=== PATIENT | female | born 1955 | race Caucasian/White ===

== ENCOUNTER 2017-03-05 19:49 | Emergency (ER) | payer MEDICAID ==
[2017-03-05 20:13] LABS: URINE APPEARANCE CLEAR; URINE BILIRUBIN NEGATIVE (NEGATIVE); URINE BLOOD MODERATE (NEGATIVE); URINE COLOR YELLOW; URINE GLUCOSE (UA) NEGATIVE (NEGATIVE); URINE KETONE NEGATIVE (NEGATIVE); URINE LEUKOCYTE ESTERASE MODERATE (NEGATIVE); URINE NITRITE NEGATIVE (NEGATIVE)
[2017-03-05 20:55] LABS: URINE BACTERIA 2+
[2017-03-05] MEDS ORDERED: TMP/SMZ 160MG/800MG TAB PO ONE (21:18)
[2017-03-05] MEDS ORDERED: PHENAZOPYRIDINE HCL 95 MG TABLET PO ONE (21:19)
--- NOTE | 2017-03-05 21:21 | Emergency Department Record ---
History of Present Illness - General Chief complaint: Female Urogenital Problem Stated complaint: UTI Time Seen by Provider: 03/05/17 21:15 Source: Patient Mode of Arrival: Ambulatory - History of Present Illness Onset/Timin -: Days(s) Patient : No Associated Symptoms: Dysuria - Related Data Home Medications Medication Instructions Recorded Confirmed Last Taken Amlodipine Besylate [Norvasc] 5 mg PO DAILY 04/09/15 03/05/17 08/24/15 Atorvastatin Calcium 10 mg PO DAILY 04/09/15 03/05/17 08/24/15 Citalopram Hydrobromide [Celexa] 20 mg PO DAILY 04/09/15 03/05/17 08/24/15 Glimepiride [Amaryl] 1 mg PO DAILY 04/09/15 03/05/17 08/24/15 Lisinopril 10 mg PO DAILY 04/09/15 03/05/17 08/24/15 Estrogens, Conjugated [Premarin] 1.25 mg PO DAILY 02/14/16 03/05/17 Unknown Tolterodine Tartrate [Detrol LA] 4 mg PO DAILY 02/14/16 03/05/17 Unknown Previous Rx's Medication Instructions Recorded Phenazopyridine HCl [Pyridium] 200 mg PO TID #5 tab 03/05/17 Sulfamethoxazole/Trimethoprim 1 each PO BID #19 tablet 03/05/17 [Bactrim Ds Tablet] Allergies Allergy/AdvReac Type Severity Reaction Status Date / Time fluconazole [From Diflucan] Allergy HIVES Unverified 06/02/16 18:37 Travel Screening - Travel/Exposure Within Last 30 Days Have you traveled within the last 30 days?: No Review of Systems Reviewed: No additional complaints except as noted below Constitutional: Reports: As per HPI. Denies: Chills, Fever, Malaise, Night sweats, Weakness, Weight change Eyes: Reports: As per HPI. Denies: Eye discharge, Eye pain, Photophobia, Vision change ENT: Reports: As per HPI. Denies: Congestion, Dental pain, Ear pain, Epistaxis , Hearing loss, Throat pain Respiratory: Reports: As per HPI. Denies: Cough, Dyspnea, Hemoptysis, Stridor, Wheezes Cardiovascular: Reports: As per HPI. Denies: Arrhythmia, Chest pain, Dyspnea on exertion, Edema, Murmurs, Orthopnea, Palpitations, Paroxysmal nocturnal dyspnea, Rheumatic Fever, Syncope Endocrine: Reports: As per HPI. Denies: Fatigue, Heat or cold intolerance, Polydipsia, Polyuria Gastrointestinal: Reports: As per HPI. Denies: Abdominal pain, Constipation, Diarrhea, Hematemesis, Hematochezia, Melena, Nausea, Vomiting Genitourinary: Reports: As per HPI. Denies: Abnormal menses, Discharge, Dyspareunia, Dysuria, Frequency, Hematuria, Incontinence, Retention, Urgency Musculoskeletal: Reports: As per HPI. Denies: Arthralgia, Back pain, Gout, Joint swelling, Myalgia, Neck pain Skin: Reports: As per HPI. Denies: Bruising, Change in color, Change in hair/ nails, Lesions, Pruritus, Rash Neurological: Reports: As per HPI. Denies: Abnormal gait, Confusion, Headache, Numbness, Paresthesias, Seizure, Tingling, Tremors, Vertigo, Weakness Psychiatric: Reports: As per HPI. Denies: Anxiety, Auditory hallucinations, Depression, Homicidal thoughts, Suicidal thoughts, Visual hallucinations Hematological/Lymphatic: Reports: As per HPI. Denies: Anemia, Blood Clots, Easy bleeding, Easy bruising, Swollen glands Past Medical History - SOCIAL HISTORY Smoking Status: Former smoker Alcohol Use: None Drug Use: None - RESPIRATORY Hx Respiratory Disorders: No - CARDIOVASCULAR Hx Cardio Disorders: Yes Hx Deep Vein Thrombosis: Yes Hx Hypertension: Yes - NEURO Hx Neuro Disorders: No - GI Hx GI Disorders: No - Hx Genitourinary Disorders: Yes Hx Bladder Problem: Yes (bladder frequency) Hx UTI: Yes - ENDOCRINE Hx Endocrine Disorders: Yes Hx Diabetes: Yes Comment:: checks blood sugars daily - MUSCULOSKELETAL Hx Musculoskeletal Disorders: No Comment:: lump left upper leg - PSYCH Hx Psych Problems: Yes Hx Depression: Yes Comment:: learning disabilities - HEMATOLOGY/ONCOLOGY Hx Hematology/Oncology Disorders: Yes Hx Blood Transfusions: Yes Hx Blood Transfusion Reaction: No Family Medical History Any Significant Family History?: Yes Hx Cancer: Brother/Sister Hx Depression: Brother/Sister Hx Diabetes: Brother/Sister, Grandparents Hx HTN: Brother/Sister Hx Seizures: Children Physical Exam - General General Appearance: Alert, Oriented x3, Cooperative, No acute distress - Head Head exam: Normal inspection - Eye Eye exam: Normal appearance, PERRL Pupils: Normal accommodation - ENT ENT exam: Normal exam, Mucous membranes moist, Normal external ear exam, Normal orophraynx, TM's normal bilaterally Ear exam: Normal external inspection. negative: External canal tenderness Nasal Exam: Normal inspection. negative: Discharge, Sinus tenderness Mouth exam: Normal external inspection, Tongue normal Teeth exam: Normal inspection. negative: Dental caries Throat exam: Normal inspection. negative: Tonsillar erythema, Tonsillar exudate - Neck Neck exam: Normal inspection, Full ROM. negative: Tenderness - Respiratory Respiratory exam: Normal lung sounds bilaterally. negative: Respiratory distress - Cardiovascular Cardiovascular Exam: Regular rate, Normal rhythm, Normal heart sounds - GI/Abdominal GI/Abdominal exam: Soft, Normal bowel sounds. negative: Tenderness - Rectal Rectal exam: Deferred - exam: Deferred - Extremities Extremities exam: Normal inspection, Full ROM, Normal capillary refill. negative: Tenderness - Back Back exam: Reports: Normal inspection, Full ROM. Denies: Muscle spasm, Rash noted, Tenderness - Neurological Neurological exam: Alert, Normal gait, Oriented X3, Reflexes normal - Psychiatric Psychiatric exam: Normal affect, Normal mood - Skin Skin exam: Dry, Intact, Normal color, Warm Course Vital Signs 03/05/17 20:27 Temperature 97.9 F Pulse Rate [ 101 H Pulse Ox Probe] Respiratory 25 H Rate Blood Pressure 139/77 [Left Arm] Pulse Ox 93 L Medical Decision Making - Management Options MDM Management: No Additional Work-up Planned - Data Complexity MDM Data: Labs Ordered and/or Reviewed (UA positive for UTI) - Lab Data Lab Results 03/05/17 Range/Units 20:05 Urine Color Yellow Urine Appearance Clear Urine pH 5.5 (5.0-8.0) Ur Specific Thurmond >= 1.030 (1.002-1.030) Urine Protein 30 mg/dl H (NEGATIVE) Urine Glucose (UA) Negative (NEGATIVE) Urine Ketones Negative (NEGATIVE) Urine Blood Moderate (NEGATIVE) Urine Nitrite Negative (NEGATIVE) Urine Bilirubin Negative (NEGATIVE) Urine Urobilinogen 1.0 (0.20 - 1.00) E.U./dL Ur Leukocyte Esterase Moderate H (NEGATIVE) Urine RBC 3 - 6 (NONE SEEN) Urine WBC Too numerous to cnt (0-2/hpf) Ur Epithelial Cells 7 - 10 (FEW) Urine Bacteria 2+ Disposition Disposition: Discharge Clinical Impression: UTI (urinary tract infection) Disposition: Home, Self-Care Condition: (1) Good Instructions: Urinary Tract Infection in Women (ED) Additional Instructions: Take antibiotics until gone Take pyridium for the first 2 days--it will turn your urine orange. Follow up with PCP for recheck of urine when done with antibiotics. Prescriptions: Phenazopyridine HCl [Pyridium] 200 mg PO TID #5 tab Sulfamethoxazole/Trimethoprim [Bactrim Ds Tablet] 1 each PO BID #19 tablet Forms: Patient Portal Access Quality - Quality Measures Quality Measures: N/A - Blood Pressure Screening Blood Pressure Classification: Pre-Hypertensive BP Reading Systolic Measurement: 139 Diastolic Measurement: 77 Screening for High Blood Pressure: < Normal BP, F/U Not Required > [G8783] Normal BP Follow-up Interventions: No follow-up required
== END 2017-03-05 22:37 | disposition home or self-care (01) ==
LOC: ER 19:49
DX: N39.0 Urinary tract infection, site not specified (principal); R31.29 Other microscopic hematuria
CPT/HCPCS: 81001; J3490; 99282

== ENCOUNTER 2017-08-29 21:32 | Emergency (ER) | payer MEDICAID ==
[2017-08-29 21:53] LABS: URINE APPEARANCE CLEAR; URINE BILIRUBIN NEGATIVE (NEGATIVE); URINE BLOOD NEGATIVE (NEGATIVE); URINE COLOR YELLOW; URINE GLUCOSE (UA) NEGATIVE (NEGATIVE); URINE KETONE TRACE (NEGATIVE); URINE LEUKOCYTE ESTERASE NEGATIVE (NEGATIVE); URINE NITRITE NEGATIVE (NEGATIVE); URINE PROTEIN NEGATIVE (NEGATIVE); URINE UROBILINOGEN 0.2 E.U./dL (0.20 - 1.00)
--- NOTE | 2017-08-29 21:56 | Emergency Department Record ---
History of Present Illness - General Chief Complaint: Back Pain/Injury Stated Complaint: LOWER BACK PAIN Time Seen by Provider: 08/29/17 21:52 Source: Patient Mode of Arrival: Ambulatory Limitations: No limitations - History of Present Illness Initial Comments: 61 yo female presents to ED for evaluation of low back pain and urinary symptoms for the past 3-4 days. Patient reports previous symptoms related to urinary tract infections, denies fevers, chills, nausea, or vomiting symptoms. Patient denies abdominal pain symptoms, and denies history of kidney stones. Patient denies recent strain or back injury as well. Patient reports taking Ibuprofen that has not significantly improved her pain symptoms. MD Complaint: Back pain Onset/Timin -: Days(s) Similar Symptoms Previously: Yes Radiation: None Severity: Moderate Quality: Aching Consistency: Constant Improves With: None Worsens With: None Context: Other (possible UTI) Associated Symptoms: Denies other symptoms - Related Data Allergies Allergy/AdvReac Type Severity Reaction Status Date / Time fluconazole [From Diflucan] Allergy HIVES Unverified 06/16/17 16:05 Travel Screening - Travel/Exposure Within Last 30 Days Have you traveled within the last 30 days?: No Review of Systems Constitutional: Denies: Chills, Fever, Malaise, Night sweats Eyes: Denies: Eye discharge, Eye pain ENT: Denies: Congestion, Ear pain, Epistaxis Respiratory: Denies: Cough, Dyspnea Cardiovascular: Denies: Chest pain, Dyspnea on exertion Endocrine: Denies: Fatigue, Heat or cold intolerance Gastrointestinal: Denies: Abdominal pain, Constipation, Nausea, Vomiting Genitourinary: Reports: Dysuria, Frequency. Denies: Hematuria, Incontinence Musculoskeletal: Reports: Back pain. Denies: Arthralgia Skin: Denies: Bruising, Change in color Neurological: Denies: Abnormal gait, Confusion, Seizure Psychiatric: Denies: Anxiety Hematological/Lymphatic: Denies: Anemia, Blood Clots Past Medical History - SOCIAL HISTORY Smoking Status: Former smoker - RESPIRATORY Hx Respiratory Disorders: No - CARDIOVASCULAR Hx Cardio Disorders: Yes Hx Deep Vein Thrombosis: Yes Hx Hypertension: Yes - NEURO Hx Neuro Disorders: No - GI Hx GI Disorders: No - Hx Genitourinary Disorders: Yes Hx Bladder Problem: Yes (bladder frequency) Hx UTI: Yes - ENDOCRINE Hx Endocrine Disorders: Yes Hx Diabetes: Yes Comment:: checks blood sugars daily - MUSCULOSKELETAL Hx Musculoskeletal Disorders: No Comment:: lump left upper leg - PSYCH Hx Psych Problems: Yes Hx Depression: Yes Comment:: learning disabilities - HEMATOLOGY/ONCOLOGY Hx Hematology/Oncology Disorders: Yes Hx Blood Transfusions: Yes Hx Blood Transfusion Reaction: No Family Medical History Any Significant Family History?: Yes Hx Cancer: Brother/Sister Hx Depression: Brother/Sister Hx Diabetes: Brother/Sister, Grandparents Hx HTN: Brother/Sister Hx Seizures: Children Physical Exam - General General Appearance: Alert, Oriented x3, Cooperative, Mild distress, Other ( ambulates from the restroom with steady gait, smiling, well appearing on examination.) Limitations: No limitations - Head Head exam: Atraumatic, Normocephalic, Normal inspection Head exam detail: negative: Abrasion, Contusion, Rodriguez's sign, General tenderness, Hematoma, Laceration - Eye Eye exam: Normal appearance. negative: Conjunctival injection, Periorbital swelling, Periorbital tenderness, Scleral icterus - ENT Ear exam: negative: Auricular hematoma, Auricular trauma Nasal Exam: negative: Active bleeding, Discharge, Dried blood, Foreign body Mouth exam: negative: Drooling, Laceration, Tongue elevation - Neck Neck exam: Normal inspection. negative: Meningismus, Tenderness - Respiratory Respiratory exam: Normal lung sounds bilaterally. negative: Rales, Respiratory distress, Rhonchi, Stridor - Cardiovascular Cardiovascular Exam: Regular rate, Normal rhythm, Normal heart sounds - GI/Abdominal GI/Abdominal exam: Soft. negative: Rebound, Rigid, Tenderness - Rectal Rectal exam: Deferred - exam: Deferred - Extremities Extremities exam: Normal inspection. negative: Calf tenderness, Pedal edema, Tenderness - Back Back exam: Denies: CVA tenderness (R), CVA tenderness (L) - Neurological Neurological exam: Alert, Normal gait, Oriented X3 - Psychiatric Psychiatric exam: Normal affect, Normal mood - Skin Skin exam: Normal color. negative: Abrasion Type of lesion: negative: abrasion Course Vital Signs 08/29/17 21:40 Temperature 98.1 F Pulse Rate [ 95 H Pulse Ox Probe] Respiratory 20 Rate Blood Pressure 127/84 [Left Arm] Pulse Ox 95 - Reevaluation(s) Reevaluation #1: 08/29/17 21:55 Patient reports similar symptoms previously related to UTI, denies injury or history of kidney stones. Will obtain UA and re-evaluate. Reevaluation #2: 08/29/17 21:58 UA reviewed and appears negative for blood or infection. Symptoms appear c/w lower back strain, patient has only taken (1) ibuprofen 200 mg tablet for her pain symptoms. Patient was encouraged to take 600 mg every 6 hours as needed for her back pain symptoms. Imaging does not appears indicated based on the history and physical examination of the patient. Disposition Disposition: Discharge Clinical Impression: Low back strain Qualifiers: Encounter type: initial encounter Qualified Code(s): S39.012A - Strain of muscle, fascia and tendon of lower back, initial encounter Disposition: Home, Self-Care Condition: (2) Stable Instructions: Low Back Strain (ED) Additional Instructions: Return to ED if your symptoms worsen or if you have any concerns. Ibuprofen 600 mg every 6 hours as needed for your pain symptoms. Follow-up with your family doctor in 3-5 days as directed. Forms: Patient Portal Access Time of Disposition: 22:01 Quality - Quality Measures Quality Measures: N/A - Blood Pressure Screening Does Patient Have Any of the Following: No Blood Pressure Classification: Normal BP Reading Systolic Measurement: 109 Diastolic Measurement: 64 Screening for High Blood Pressure: < Normal BP, F/U Not Required > [G8783]
== END 2017-08-29 22:35 | disposition home or self-care (01) ==
LOC: ER 21:32
DX: S39.012A Strain of muscle, fascia and tendon of lower back, initial encounter (principal); X58.XXXA Exposure to other specified factors, initial encounter
CPT/HCPCS: 81003; 99282

== ENCOUNTER 2019-02-17 12:54 | Emergency (ER) | payer MEDICAID ==
[2019-02-17] MEDS ORDERED: 0.9 % SODIUM CHLORIDE 1,000 ML BAG IV ONE (13:15)
[2019-02-17] MEDS ORDERED: ONDANSETRON HCL IV 4 MG/2 ML VIAL IVP ONE (13:17)
--- NOTE | 2019-02-17 13:18 | Emergency Department Record ---
History of Present Illness - General Chief complaint: Vaginal bleeding Stated complaint: VAG BLEEDING/TROUBLE PEEING/VOMITING Time Seen by Provider: 02/17/19 13:14 Source: Patient Mode of Arrival: Ambulatory - History of Present Illness Initial comments: The patient is a vague/poor historian who states she noticed a small amount of blood in the toilet twice no clots. She had abdominal pains last night which are intermittent. Her low back also hurts in the middle. She did vomit once last night. It is difficult for her to urinate today. She denies history of kidney stones. She has had a hysterectomy, and a history of diverticulitis. She has a hx of constipation for which she took something last night and had a large BM this morning. Onset/Timin -: Days(s) Severity: Moderate Severity scale (1-10): 2 Quality: Aching, Cramping Consistency: Intermittent Associated Symptoms: Nausea/vomiting - Related Data Previous Rx's Medication Instructions Recorded Ciprofloxacin HCl [Cipro] 500 mg PO Q12HR #20 tablet 02/17/19 Metronidazole [Flagyl] 500 mg PO QID #40 tablet 02/17/19 Allergies Allergy/AdvReac Type Severity Reaction Status Date / Time fluconazole [From Diflucan] Allergy HIVES Verified 02/17/19 13:08 Travel Screening - Travel/Exposure Within Last 30 Days Have you traveled within the last 30 days?: No - Travel/Exposure Within Last Year Have you traveled outside the [place] in the last year?: No - Additonal Travel Details Have you been exposed to anyone with a communicable illness?: No - Travel Symptoms Symptom Screening: None Review of Systems Reviewed: No additional complaints except as noted below Constitutional: Reports: As per HPI. Denies: Chills, Fever, Malaise, Night sweats, Weakness, Weight change Eyes: Reports: As per HPI. Denies: Eye discharge, Eye pain, Photophobia, Vision change ENT: Reports: As per HPI. Denies: Congestion, Dental pain, Ear pain, Epistaxis, Hearing loss, Throat pain Respiratory: Reports: As per HPI. Denies: Cough, Dyspnea, Hemoptysis, Stridor, Wheezes Cardiovascular: Reports: As per HPI. Denies: Arrhythmia, Chest pain, Dyspnea on exertion, Edema, Murmurs, Orthopnea, Palpitations, Paroxysmal nocturnal dyspnea, Rheumatic Fever, Syncope Endocrine: Reports: As per HPI. Denies: Fatigue, Heat or cold intolerance, Polydipsia, Polyuria Gastrointestinal: Reports: As per HPI. Denies: Abdominal pain, Constipation, Diarrhea, Hematemesis, Hematochezia, Melena, Nausea, Vomiting Genitourinary: Reports: As per HPI. Denies: Abnormal menses, Discharge, Dyspareunia, Dysuria, Frequency, Hematuria, Incontinence, Retention, Urgency Musculoskeletal: Reports: As per HPI. Denies: Arthralgia, Back pain, Gout, Joint swelling, Myalgia, Neck pain Skin: Reports: As per HPI. Denies: Bruising, Change in color, Change in hair/nails, Lesions, Pruritus, Rash Neurological: Reports: As per HPI. Denies: Abnormal gait, Confusion, Headache, Numbness, Paresthesias, Seizure, Tingling, Tremors, Vertigo, Weakness Psychiatric: Reports: As per HPI. Denies: Anxiety, Auditory hallucinations, Depression, Homicidal thoughts, Suicidal thoughts, Visual hallucinations Hematological/Lymphatic: Reports: As per HPI. Denies: Anemia, Blood Clots, Easy bleeding, Easy bruising, Swollen glands Past Medical History - SOCIAL HISTORY Smoking Status: Former smoker Alcohol Use: None Drug Use: None - RESPIRATORY Hx Respiratory Disorders: No - CARDIOVASCULAR Hx Cardio Disorders: Yes Hx Deep Vein Thrombosis: Yes Hx Hypertension: Yes - NEURO Hx Neuro Disorders: No - GI Hx GI Disorders: Yes Hx Diverticulitis: Yes - Hx Genitourinary Disorders: Yes Hx Bladder Problem: Yes (bladder frequency) Hx UTI: Yes - ENDOCRINE Hx Endocrine Disorders: Yes Hx Diabetes: Yes Comment:: checks blood sugars daily - MUSCULOSKELETAL Hx Musculoskeletal Disorders: No Comment:: lump left upper leg - PSYCH Hx Psych Problems: Yes Hx Depression: Yes Comment:: learning disabilities - HEMATOLOGY/ONCOLOGY Hx Hematology/Oncology Disorders: Yes Hx Blood Transfusions: Yes Hx Blood Transfusion Reaction: No Family Medical History Any Significant Family History?: Yes Hx Cancer: Brother/Sister Hx Depression: Brother/Sister Hx Diabetes: Brother/Sister, Grandparents Hx HTN: Brother/Sister Hx Seizures: Children Physical Exam - General General Appearance: Alert, Oriented x3, Cooperative, No acute distress - Head Head exam: Normal inspection - Eye Eye exam: Normal appearance, PERRL Pupils: Normal accommodation - ENT ENT exam: Normal exam, Mucous membranes moist, Normal external ear exam, Normal orophraynx, TM's normal bilaterally Ear exam: Normal external inspection. negative: External canal tenderness Nasal Exam: Normal inspection. negative: Discharge, Sinus tenderness Mouth exam: Normal external inspection, Tongue normal Teeth exam: Normal inspection. negative: Dental caries Throat exam: Normal inspection. negative: Tonsillar erythema, Tonsillar exudate - Neck Neck exam: Normal inspection, Full ROM. negative: Tenderness - Respiratory Respiratory exam: Normal lung sounds bilaterally. negative: Respiratory distress - Cardiovascular Cardiovascular Exam: Normal rhythm, Normal heart sounds, Tachycardia - GI/Abdominal GI/Abdominal exam: Soft, Normal bowel sounds, Tenderness (mildly tender diffusely entire abdomen). negative: Distended, Guarding, Hernia - Rectal Rectal exam: Heme (-) stool, Normal rectal tone. negative: Hemorrhoids, Mass - exam: Normal bimanual exam. negative: Vaginal bleeding - Extremities Extremities exam: Normal inspection, Full ROM, Normal capillary refill. negative: Tenderness - Back Back exam: Reports: Normal inspection, Full ROM. Denies: Muscle spasm, Rash noted, Tenderness - Neurological Neurological exam: Alert, Normal gait, Oriented X3, Reflexes normal - Psychiatric Psychiatric exam: Normal affect, Normal mood - Skin Skin exam: Dry, Intact, Normal color, Warm Course Vital Signs 02/17/19 13:03 Temperature 98.2 F Pulse Rate 112 H Respiratory 18 Rate Blood Pressure 135/81 Pulse Ox 94 L - Reevaluation(s) Reevaluation #1: 02/17/19 16:11 Patient and her state she sees Dr. Navarro in [place] where they would like to follow up. Discussed the importance of follow up for the findings on CT scan, and importance of taking all her antibiotics until gone. Disc made to send with patient for Dr. Navarro to follow. Medical Decision Making - Management Options MDM Management: No Additional Work-up Planned (PCP follow up in office) - Data Complexity MDM Data: Labs Ordered and/or Reviewed, X-Ray Ordered and/or Reviewed (CT Scan Abd/Pelvis: Wall thickening sigmoid colon suspect diverticulitis; 3.2 cm cluid collection, likely ovarian cyst; small cystic area of change in vaginal wall; wall thickening of bladder. ) - Lab Data Result diagrams: 02/17/19 13:25 06/29/19 13:25 Disposition Disposition: Discharge Clinical Impression: Diverticulitis of sigmoid colon Ovarian cyst Qualifiers: Laterality: unspecified laterality Qualified Code(s): N83.209 - Unspecified ovarian cyst, unspecified side Disposition: Home, Self-Care Instructions: Diverticulitis (ED), Ovarian Cyst (ED) Additional Instructions: Home, rest. Push fluids. Take antibiotics as directed: Flagyl 500 mg four times daily for 10 days No alcohol with this medicine. Cipro 500 mg twice daily for 10 days. Take your Disc of your CT scan for your PCP Dr. Navarro for follow up of the findings as indicated. Recheck with your PCP for your diverticulitis. Tylenol alternated with ibuprofen as directed as needed for pain. Prescriptions: Ciprofloxacin HCl [Cipro] 500 mg PO Q12HR #20 tablet Metronidazole [Flagyl] 500 mg PO QID #40 tablet Quality - Quality Measures Quality Measures: N/A - Blood Pressure Screening Does Patient Have Any of the Following: No Blood Pressure Classification: Pre-Hypertensive BP Reading Systolic Measurement: 135 Diastolic Measurement: 81 Screening for High Blood Pressure: < Normal BP, F/U Not Required > [G8783]
[2019-02-17 13:37] LABS: ABSOLUTE NEUTROPHIL COUNT 7.74; BASO % 0.1 % (0-6); EOS % 1.1 % (0-6); GRAN % 70.1 % (47-80); HEMATOCRIT 39.2 % (35.0-47.0); HEMOGLOBIN 12.6 gm/dl (11.6-16.0); LYMPH % 23.3 % (16-45); MEAN CELL VOLUME 90.7 fl (81-97); MEAN CORPUSCULAR HEMOGLOBIN 29.2 pg (27-33); MEAN CORPUSCULAR HGB CONC 32.1 g/dl (32-36); MEAN PLATELET VOLUME 9.7 fl (7.4-10.4); MONO % 5.4 % (0-9); PLATELET COUNT 210 K/uL (130-400); RED BLOOD COUNT 4.32 M/uL (3.80-5.40); RED CELL DISTRIBUTION WIDTH 13.5 % (11.5-14.5)
[2019-02-17 13:51] LABS: BLOOD UREA NITROGEN 20 mg/dL (8-23); CREATININE 0.7 mg/dL (0.5-0.9); EST GLOMERULAR FILTRATION RATE > 60 mL/min; LIPASE 17 U/L (13-60); TOTAL PROTEIN 7.2 g/dL (6.6-8.7)
[2019-02-17 13:53] LABS: GLUCOSE,RANDOM 193 mg/dL (74-109)
[2019-02-17 13:56] LABS: ALB/GLOB RATIO 1.3 (1.1-1.8); ALKALINE PHOSPHATASE 37 U/L (35-104); ALT/SGPT 14 U/L (<33); AST/SGOT 24 U/L (10.0-35.0)
[2019-02-17 14:42] LABS: URINE APPEARANCE CLEAR; URINE BILIRUBIN NEGATIVE (NEGATIVE); URINE BLOOD NEGATIVE (NEGATIVE); URINE COLOR ORANGE; URINE GLUCOSE (UA) NEGATIVE (NEGATIVE); URINE KETONE NEGATIVE (NEGATIVE); URINE LEUKOCYTE ESTERASE NEGATIVE (NEGATIVE); URINE NITRITE NEGATIVE (NEGATIVE); URINE PROTEIN NEGATIVE (NEGATIVE); URINE UROBILINOGEN 0.2 E.U./dL (0.20 - 1.00)
[2019-02-17] MEDS ORDERED: CIPROFLOXACIN HCL 500 MG TABLET PO ONE (16:13)
[2019-02-17] MEDS ORDERED: METRONIDAZOLE 250 MG TABLET PO ONE (16:13)
--- NOTE | 2019-02-17 22:14 | CT SCAN REPORT ---
EXAM: CT SCAN ABDOMEN/PELVIS W CONTRAST HISTORY: DYSURIA, LOWER ABDOMINAL PAIN. TECHNIQUE: CT of the abdomen and pelvis performed following intravenous contrast administration. Type and amount of contrast are recorded in the medial record. COMPARISON: CT abdomen and pelvis 02/14/2016. FINDINGS: The lung bases are unremarkable. There is a small hiatal hernia. The liver is unremarkable with no hepatic mass identified. A 7 mm hypodense lesion is seen in the spleen, similar to the previous study. Spleen otherwise unremarkable. The pancreas is unremarkable with no pancreatic mass. The bile ducts are not dilated and there are no calcified gallstones. There is no adrenal lesion. There is bilateral renal function with no renal mass or hydronephrosis. Possible 2 mm nonobstructing calculus in the lower pole of the left kidney. There are small right renal cysts. Kidneys otherwise are unremarkable. There are atherosclerotic changes in the abdominal aorta. There is no aneurysm. No periaortic mass or adenopathy identified. The appendix is unremarkable. There are no dilated bowel loops. The sigmoid colon is somewhat redundant. There is mild focal wall thickening in the sigmoid colon with some early inflammatory changes. This may represent diverticulitis. No free air identified. There is an oval area of low density in the mid pelvis 3.2 x 1.9 cm in size, which has a cystic appearance. This has a density measuring of about 13 Hounsfield units. The uterus is surgically absent. There is a cyst identified, possibly in the vaginal vault 1.6 cm in size. The wall of the urinary bladder appears mildly thickened. This may just be due to incomplete distention. IMPRESSION: 1. THERE IS DIVERTICULOSIS. 2. APPARENT SEGMENT OF WALL THICKENING WITH SOME ADJACENT INFLAMMATORY CHANGE IN THE SIGMOID COLON MAY REPRESENT DIVERTICULITIS. PLEASE CORRELATE CLINICALLY. 3. A 3.1 X 1.9 CM OVAL FLUID COLLECTION IN THE PELVIS, NEW SINCE THE PREVIOUS STUDY OF UNCERTAIN ETIOLOGY. THIS MAY REPRESENT AN OVARIAN CYST. 4. APPARENT WALL THICKENING OF THE URINARY BLADDER, POSSIBLY DUE TO INCOMPLETE DISTENTION. 5. A 1.6 CM LOW DENSITY AREA IN THE REGION OF THE VAGINA. PLEASE CORRELATE CLINICALLY. 6. PROBABLE 2 MM NONOBSTRUCTING LEFT RENAL CALCULUS. 7. SMALL HIATAL HERNIA. 8. SEE ABOVE FOR FULL DISCUSSION. JOB NUMBER: [id number] [facility]
== END 2019-02-17 16:34 | disposition home or self-care (01) ==
LOC: ER 12:54
DX: K57.32 Diverticulitis of large intestine without perforation or abscess without bleeding (principal); N83.209 Unspecified ovarian cyst, unspecified side; M54.5 Low back pain; R11.2 Nausea with vomiting, unspecified; R30.0 Dysuria; I10 Essential (primary) hypertension; Z87.891 Personal history of nicotine dependence
CPT/HCPCS: 99284 ×2; 96374; 96361; 83690; 85025; 80053; 81003; 74177; Q9967; J2405; J7030

== ENCOUNTER 2019-02-24 22:21 | Observation (INO) | payer MEDICAID ==
[2019-02-25] MEDS ORDERED: 0.9 % SODIUM CHLORIDE 1,000 ML BAG IV ONE (00:08)
[2019-02-25 00:32] LABS: ABSOLUTE NEUTROPHIL COUNT 5.18; BASO % 0.2 % (0-6); EOS % 1.6 % (0-6); GRAN % 62.4 % (47-80); HEMATOCRIT 36.5 % (35.0-47.0); HEMOGLOBIN 11.8 gm/dl (11.6-16.0); LYMPH % 28.2 % (16-45); MEAN CELL VOLUME 90.8 fl (81-97); MEAN CORPUSCULAR HEMOGLOBIN 29.4 pg (27-33); MEAN CORPUSCULAR HGB CONC 32.3 g/dl (32-36); MEAN PLATELET VOLUME 9.7 fl (7.4-10.4); MONO % 7.6 % (0-9); PLATELET COUNT 190 K/uL (130-400); RED BLOOD COUNT 4.02 M/uL (3.80-5.40); RED CELL DISTRIBUTION WIDTH 13.7 % (11.5-14.5); WHITE BLOOD COUNT W/O DIFF 8.3 K/uL (4.2-12.2)
[2019-02-25 00:32] LABS: URINE APPEARANCE CLEAR; URINE BILIRUBIN NEGATIVE (NEGATIVE); URINE BLOOD NEGATIVE (NEGATIVE); URINE COLOR YELLOW; URINE GLUCOSE (UA) NEGATIVE (NEGATIVE); URINE KETONE NEGATIVE (NEGATIVE); URINE LEUKOCYTE ESTERASE NEGATIVE (NEGATIVE); URINE NITRITE NEGATIVE (NEGATIVE); URINE PROTEIN NEGATIVE (NEGATIVE); URINE UROBILINOGEN 0.2 E.U./dL (0.20 - 1.00)
[2019-02-25 00:43] LABS: BLOOD UREA NITROGEN 12 mg/dL (8-23); CREATININE 0.5 mg/dL (0.5-0.9); EST GLOMERULAR FILTRATION RATE > 60 mL/min
[2019-02-25 00:44] LABS: LIPASE 15 U/L (13-60); TOTAL PROTEIN 6.9 g/dL (6.6-8.7)
[2019-02-25 00:46] LABS: GLUCOSE,RANDOM 86 mg/dL (74-109)
[2019-02-25 00:49] LABS: ALB/GLOB RATIO 1.3 (1.1-1.8); ALBUMIN 3.9 g/dL (4.0-5.0); ALKALINE PHOSPHATASE 32 U/L (35-104); ALT/SGPT 13 U/L (<33); AST/SGOT 24 U/L (10.0-35.0)
[2019-02-25] MEDS ORDERED: POTASSIUM CHLORIDE 20 MEQ/15ML CUP PO ONE (01:27)
--- NOTE | 2019-02-25 01:27 | Emergency Department Record ---
History of Present Illness - General Chief Complaint: Abdominal Pain Stated Complaint: STOMACH PAIN Time Seen by Provider: 02/24/19 23:47 Source: Patient Mode of Arrival: Ambulatory Limitations: No limitations - History of Present Illness Initial Comments: pt was here 8 days ago and dxd w diverticulitis and started on flagyl and cipro. pt states she is no better MD Complaint: Abdominal pain Onset/Timin -: Week(s) Location: LUQ, RUQ, LLQ, RLQ Radiation: None Migration to: No migration Severity scale (1-10): 8 Quality: Fullness, Sharp Consistency: Intermittent Improves With: Nothing Worsens With: Nothing Associated Symptoms: Denies other symptoms - Related Data Patient : No Home Medications Medication Instructions Recorded Confirmed Last Taken Ciprofloxacin HCl [Cipro] 1 tab PO BID 02/25/19 02/25/19 02/25/19 Metronidazole 1 tab PO QID 02/25/19 02/25/19 02/25/19 Previous Rx's Medication Instructions Recorded Ciprofloxacin HCl [Cipro] 500 mg PO Q12HR #20 tablet 02/17/19 Metronidazole [Flagyl] 500 mg PO QID #40 tablet 02/17/19 Allergies Allergy/AdvReac Type Severity Reaction Status Date / Time fluconazole [From Diflucan] Allergy HIVES Verified 02/17/19 13:08 Travel Screening - Travel/Exposure Within Last 30 Days Have you traveled within the last 30 days?: No - Travel/Exposure Within Last Year Have you traveled outside the [place] in the last year?: No - Additonal Travel Details Have you been exposed to anyone with a communicable illness?: No Review of Systems Reviewed: No additional complaints except as noted below Constitutional: Reports: As per HPI. Denies: Chills, Fever, Malaise, Night sweats, Weakness, Weight change Eyes: Reports: As per HPI. Denies: Eye discharge, Eye pain, Photophobia, Vision change ENT: Reports: As per HPI. Denies: Congestion, Dental pain, Ear pain, Epistaxis, Hearing loss, Throat pain Respiratory: Reports: As per HPI. Denies: Cough, Dyspnea, Hemoptysis, Stridor, Wheezes Cardiovascular: Reports: As per HPI. Denies: Arrhythmia, Chest pain, Dyspnea on exertion, Edema, Murmurs, Orthopnea, Palpitations, Paroxysmal nocturnal dyspnea, Rheumatic Fever, Syncope Endocrine: Reports: As per HPI. Denies: Fatigue, Heat or cold intolerance, Polydipsia, Polyuria Gastrointestinal: Reports: As per HPI, Abdominal pain. Denies: Constipation, Diarrhea, Hematemesis, Hematochezia, Melena, Nausea, Vomiting Genitourinary: Reports: As per HPI. Denies: Abnormal menses, Discharge, Dyspareunia, Dysuria, Frequency, Hematuria, Incontinence, Retention, Urgency Musculoskeletal: Reports: As per HPI. Denies: Arthralgia, Back pain, Gout, Joint swelling, Myalgia, Neck pain Skin: Reports: As per HPI. Denies: Bruising, Change in color, Change in hair/nails, Lesions, Pruritus, Rash Neurological: Reports: As per HPI. Denies: Abnormal gait, Confusion, Headache, Numbness, Paresthesias, Seizure, Tingling, Tremors, Vertigo, Weakness Psychiatric: Reports: As per HPI. Denies: Anxiety, Auditory hallucinations, Depression, Homicidal thoughts, Suicidal thoughts, Visual hallucinations Hematological/Lymphatic: Reports: As per HPI. Denies: Anemia, Blood Clots, Easy bleeding, Easy bruising, Swollen glands Past Medical History - SOCIAL HISTORY Smoking Status: Former smoker Alcohol Use: None Drug Use: None - RESPIRATORY Hx Respiratory Disorders: No - CARDIOVASCULAR Hx Cardio Disorders: Yes Hx Deep Vein Thrombosis: Yes Hx Hypertension: Yes - NEURO Hx Neuro Disorders: No - GI Hx GI Disorders: Yes Hx Diverticulitis: Yes - Hx Genitourinary Disorders: Yes Hx Bladder Problem: Yes (bladder frequency) Hx UTI: Yes - ENDOCRINE Hx Endocrine Disorders: Yes Hx Diabetes: Yes Comment:: checks blood sugars daily - MUSCULOSKELETAL Hx Musculoskeletal Disorders: No Comment:: lump left upper leg - PSYCH Hx Psych Problems: Yes Hx Depression: Yes Comment:: learning disabilities - HEMATOLOGY/ONCOLOGY Hx Hematology/Oncology Disorders: Yes Hx Blood Transfusions: Yes Hx Blood Transfusion Reaction: No Family Medical History Any Significant Family History?: Yes Hx Cancer: Brother/Sister Hx Depression: Brother/Sister Hx Diabetes: Brother/Sister, Grandparents Hx HTN: Brother/Sister Hx Seizures: Children Physical Exam - General General Appearance: Alert, Oriented x3, Cooperative, Mild distress - Head Head exam: Normal inspection - Eye Eye exam: Normal appearance, PERRL, EOMI Pupils: Normal accommodation - ENT ENT exam: Normal exam, Mucous membranes moist, Normal external ear exam, Normal orophraynx Ear exam: Normal external inspection. negative: External canal tenderness Nasal Exam: Normal inspection. negative: Discharge, Sinus tenderness Mouth exam: Normal external inspection, Tongue normal Teeth exam: Normal inspection. negative: Dental caries Throat exam: Normal inspection. negative: Tonsillar erythema, Tonsillar exudate - Neck Neck exam: Normal inspection, Full ROM. negative: Tenderness - Respiratory Respiratory exam: Normal lung sounds bilaterally. negative: Respiratory distress - Cardiovascular Cardiovascular Exam: Regular rate, Normal rhythm, Normal heart sounds - GI/Abdominal GI/Abdominal exam: Soft, Normal bowel sounds, Tenderness - Rectal Rectal exam: Deferred - exam: Deferred - Extremities Extremities exam: Normal inspection, Full ROM, Normal capillary refill. negative: Tenderness - Back Back exam: Reports: Normal inspection, Full ROM. Denies: Muscle spasm, Rash noted, Tenderness - Neurological Neurological exam: Alert, CN II-XII intact, Normal gait, Oriented X3 - Psychiatric Psychiatric exam: Normal affect, Normal mood - Skin Skin exam: Dry, Intact, Normal color, Warm Course Vital Signs 02/24/19 02/25/19 23:42 00:51 Temperature 97.5 F L Pulse Rate [ 76 72 Pulse Ox Probe] Respiratory 20 20 Rate Blood Pressure 128/84 131/65 [Left Arm] Pulse Ox 96 94 L - Reevaluation(s) Reevaluation #1: 02/25/19 01:38 ct shows worsening diverticulitis Medical Decision Making - Lab Data Result diagrams: 02/25/19 00:21 02/25/19 00:21 Lab Results 02/25/19 02/25/19 02/25/19 Range/Units 00:21 00:21 00:34 WBC 8.3 (4.2-12.2) K/uL RBC 4.02 (3.80-5.40) M/uL Hgb 11.8 (11.6-16.0) gm/dl Hct 36.5 (35.0-47.0) % MCV 90.8 (81-97) fl MCH 29.4 (27-33) pg MCHC 32.3 (32-36) g/dl RDW 13.7 (11.5-14.5) % Plt Count 190 (130-400) K/uL MPV 9.7 (7.4-10.4) fl Gran % 62.4 (47-80) % Lymphocytes % 28.2 (16-45) % Monocytes % 7.6 (0-9) % Eosinophils % 1.6 (0-6) % Basophils % 0.2 (0-6) % Absolute Neutrophils 5.18 Sodium 135 L (136-145) mmol/L Potassium 3.2 L (3.4-4.5) mmol/L Chloride 97 L (98-107) mmol/L Carbon Dioxide 26.0 (22-29) mmol/L Anion Gap 12.0 (7-16) BUN 12 (8-23) mg/dL Creatinine 0.5 (0.5-0.9) mg/dL Estimated GFR > 60 mL/min Random Glucose 86 (74-109) mg/dL Calcium 8.7 L (8.8-10.2) mg/dL Total Bilirubin 0.30 (0.2-1.0) mg/dL AST 24 (10.0-35.0) U/L ALT 13 (<33) U/L Alkaline Phosphatase 32 L (35-104) U/L Total Protein 6.9 (6.6-8.7) g/dL Albumin 3.9 L (4.0-5.0) g/dL Globulin 3.0 (1.4-4.8) gm/dL Albumin/Globulin Ratio 1.3 (1.1-1.8) Lipase 15 (13-60) U/L Urine Color Yellow Urine Appearance Clear Urine pH 6.5 (5.0-8.0) Ur Specific [place] 1.015 (1.002-1.030) Urine Protein Negative (NEGATIVE) Urine Glucose (UA) Negative (NEGATIVE) Urine Ketones Negative (NEGATIVE) Urine Blood Negative (NEGATIVE) Urine Nitrite Negative (NEGATIVE) Urine Bilirubin Negative (NEGATIVE) Urine Urobilinogen 0.2 (0.20 - 1.00) E.U./dL Ur Leukocyte Esterase Negative (NEGATIVE) Disposition Disposition: Admit Clinical Impression: Diverticulitis large intestine Qualifiers: Diverticulitis bleeding: without bleeding Diverticulitis complication: without perforation or abscess Qualified Code(s): K57.32 - Diverticulitis of large intestine without perforation or abscess without bleeding Disposition: Still a Patient at [facility] Decision to Admit: Admit from ER Decision to Admit Date: 02/25/19 Decision to Admit Time: 01:38 Forms: Patient Portal Access Quality - Quality Measures Quality Measures: N/A - Blood Pressure Screening Does Patient Have Any of the Following: No Blood Pressure Classification: Pre-Hypertensive BP Reading Systolic Measurement: 131 Diastolic Measurement: 65 Screening for High Blood Pressure: < Pre-Hypertensive BP, F/U Documented > [G8950] Pre-Hypertensive Follow-up Interventions: Follow-up with rescreen every year.
[2019-02-25] MEDS ORDERED: ERTAPENEM SODIUM 1 G in 0.9 % SODIUM CHLORIDE 100ML 100 ML IVPB ONE (01:36)
[2019-02-25] MEDS ORDERED: ERTAPENEM SODIUM 1 G in 0.9 % SODIUM CHLORIDE 100ML 100 ML IVPB SCH ×2 (02:47→06:00)
[2019-02-25] MEDS ORDERED: TEMAZEPAM 15 MG CAPSULE PO PRN (02:47)
[2019-02-25] MEDS ORDERED: METRONIDAZOLE IVPB 500 MG/100 ML BAG IVPB SCH (02:47)
[2019-02-25] MEDS ORDERED: ACETAMINOPHEN 500 MG TABLET PO PRN (02:47)
[2019-02-25] MEDS ORDERED: ASPIRIN 81 MG CHEWABLE TABLET PO SCH (02:47)
[2019-02-25] MEDS ORDERED: 0.9 % SODIUM CHLORIDE 1000ML 1,000 ML IV PRN (02:47)
[2019-02-25] MEDS: ONDANSETRON HCL IV 4 MG/2 ML VIAL IVP PRN (03:04)
[2019-02-25] MEDS: HYDROMORPHONE HCL 2 MG/ML VIAL IV PRN ×4 (03:41→18:25)
[2019-02-25 06:08] LABS: ABSOLUTE NEUTROPHIL COUNT 4.26; BASO % 0.1 % (0-6); EOS % 2.3 % (0-6); GRAN % 56.8 % (47-80); HEMATOCRIT 31.9 % (35.0-47.0); HEMOGLOBIN 10.2 gm/dl (11.6-16.0); LYMPH % 33.5 % (16-45); MEAN CELL VOLUME 91.1 fl (81-97); MEAN CORPUSCULAR HEMOGLOBIN 29.1 pg (27-33); MEAN PLATELET VOLUME 9.6 fl (7.4-10.4); MONO % 7.3 % (0-9); PLATELET COUNT 181 K/uL (130-400); RED CELL DISTRIBUTION WIDTH 13.4 % (11.5-14.5); WHITE BLOOD COUNT W/O DIFF 7.5 K/uL (4.2-12.2)
[2019-02-25] MEDS: AMLODIPINE BESYLATE 5MG TAB PO SCH (09:25)
[2019-02-25] MEDS: ASPIRIN 81 MG CHEWABLE TABLET PO SCH (09:25)
[2019-02-25] MEDS: GLIMEPIRIDE 2 MG TABLET PO SCH (09:25)
[2019-02-25] MEDS: CITALOPRAM 20 MG TABLET PO SCH (09:25)
[2019-02-25] MEDS: LISINOPRIL 10 MG TABLET PO SCH ×2 (09:25→09:28)
[2019-02-25] MEDS: CONJUGATED ESTROGENS 1.25 MG PO SCH (09:29)
[2019-02-25] MEDS: TOLTERODINE TARTRATE 4 MG PO SCH (09:30)
[2019-02-25] MEDS ORDERED: MAGNESIUM HYDROXIDE 30 ML UDC PO ONE (09:43)
[2019-02-25] MEDS ORDERED: POTASSIUM CHLORIDE 20 MEQ TABLET PO ONE (10:59)
[2019-02-25] MEDS ORDERED: DICYCLOMINE HCL 10 MG CAPSULE PO ONE (11:09)
[2019-02-25] MEDS: 0.9 % SODIUM CHLORIDE 1000ML 1,000 ML IV PRN ×2 (11:50→22:21)
[2019-02-25] MEDS: METRONIDAZOLE IVPB 500 MG/100 ML BAG IVPB SCH ×2 (11:54→21:00)
[2019-02-25] MEDS ORDERED: DICYCLOMINE HCL 10 MG CAPSULE PO PRN (15:00)
[2019-02-25] MEDS ORDERED: SENNOSIDES/DOCUSATE SODIUM UD CAPSULE PO PRN (21:58)
[2019-02-25] MEDS ORDERED: SIMVASTATIN 20 MG TABLET PO SCH (22:00)
[2019-02-26] MEDS ORDERED: ERTAPENEM SODIUM 1 G in 0.9 % SODIUM CHLORIDE 100ML 100 ML IVPB SCH (02:00)
[2019-02-26] MEDS: ONDANSETRON HCL IV 4 MG/2 ML VIAL IVP PRN (03:35)
[2019-02-26] MEDS: METRONIDAZOLE IVPB 500 MG/100 ML BAG IVPB SCH ×2 (03:42→12:49)
[2019-02-26] MEDS ORDERED: MAGNESIUM HYDROXIDE 30 ML UDC PO ONE (06:46)
[2019-02-26 07:59] LABS: BLOOD UREA NITROGEN 5 mg/dL (8-23); CREATININE 0.4 mg/dL (0.5-0.9); EST GLOMERULAR FILTRATION RATE > 60 mL/min; GLUCOSE,RANDOM 114 mg/dL (74-109)
--- NOTE | 2019-02-26 08:41 | CT SCAN REPORT ---
EXAM: CT OF THE ABDOMEN AND PELVIS WITHOUT CONTRAST HISTORY: GENERALIZED ABDOMINAL PAIN. NAUSEA. TECHNIQUE: Helical CT examination of the abdomen and pelvis was performed without oral or intravenous contrast administration. Lack of oral and IV contrast utilization limits evaluation of the bowel and solid viscera respectively. Comparison: CT of the abdomen and pelvis with contrast dated 02/17/19. FINDINGS: There is minor dependent atelectasis within the right lung base. The lung bases are otherwise clear. No pleural or pericardial effusion. There is atherosclerotic calcification of the visualized distal right coronary artery. Mild diffuse decreased density of the liver relative to the spleen consistent with steatosis with a small area of sparing adjacent to the gallbladder fossa. The left liver lobe does appear somewhat hypertrophied. No suspicious focal hepatic lesion. The spleen, pancreas and adrenal glands are normal in appearance. The gallbladder is unremarkable and no biliary ductal dilatation is seen. The kidneys are normal in size. A tiny nonobstructing calculus is questioned within the lower pole of the left kidney. A tiny hyperdense focus is present in the lateral mid right kidney. This is nonspecific, but likely a hyperdense cyst. A too small to characterize hypodense lesion arises exophytically from the lateral aspect of the lower right kidney measuring 9 mm in maximum diameter. This is nonspecific, but likely a cyst. The kidneys are otherwise normal in appearance and there is no obstructive uropathy. No intraabdominal nor retroperitoneal lymphadenopathy. There is diffuse atherosclerosis without aneurysmal dilatation of the abdominal aorta nor iliac arteries. A small sliding type hiatal hernia is again identified. There is a large amount of stool throughout the colon. There is diverticulosis scattered throughout the colon most pronounced in the sigmoid region where it is moderate in degree. There is apparent mild wall thickening of the proximal to mid sigmoid colon raising concern for mild colitis. Minimal mesenteric fat haziness is demonstrated in this region. No gross bowel dilatation nor other bowel wall thickening. There is no evidence of appendicitis. No new free pelvic fluid nor free air. There is a small cystic area in the deep pelvis measuring 2.1 x 2.9 cm. It is not significantly changed in the interval. While this may represent a small collection of free intraperitoneal air, a post surgical seroma is also possible in this patient status post hysterectomy. A small left ovarian cyst is again suspected measuring 12 mm in diameter. This is stable. No intrinsic urinary bladder abnormality is seen though evaluation is limited by lack of distention. Fat density prominence is again noted within the right inguinal canal consistent with a fat filled inguinal hernia sac. This is unchanged. There is a cystic area in the region of the vagina left of midline measuring 16 mm. There are small associated dependent calcifications. This is of indeterminate etiology though a benign cyst is favored. No new lytic or blastic bone lesion. Degenerative changes are scattered throughout the visualized spine. A small fat filled umbilical hernia is redemonstrated. IMPRESSION: 1. LARGE AMOUNT OF STOOL WITHIN THE COLON. 2. MILD SEGMENTAL WALL THICKENING OF THE PROXIMAL SIGMOID COLON WITH MINIMAL ADJACENT MESENTERIC FAT HAZINESS SUSPICIOUS FOR MILD COLITIS. NO DEFINITE EXTRALUMINAL AIR. 3. NO OTHER CT EVIDENCE OF AN ACUTE INTRAABDOMINAL PROCESS. 4. MULTIPLE STABLE CHRONIC FINDINGS, DISCUSSED ABOVE. JOB NUMBER: [id number] MTDD
[2019-02-26] MEDS: HYDROMORPHONE HCL 2 MG/ML VIAL IV PRN (08:57)
--- NOTE | 2019-02-26 09:01 | History and Physical Report ---
DATE OF SERVICE: 02/25/2019. CHIEF COMPLAINT: Abdominal pain, worsening diverticulitis. HISTORY OF PRESENT ILLNESS: This 53-year-old female presents for the 2nd time to the emergency department for abdominal pain. She was diagnosed with diverticulitis 6-[address] scanning, and she came back in. She had a CT scan showing mild sigmoid diverticulitis which her pain is worse. She said in the 2 days it has gotten worse. She vomited 1 time 2 days ago. Last bowel movement 2 days ago. She has had a history of 3 episodes of diverticulitis in the past, and she is tolerating clear liquids, requiring Dilaudid every [address] of the abdomen and pelvis showing mild sigmoid diverticulitis. No abscesses or free air noted. MEDICAL HISTORY: Diabetes mellitus type 2, hypertension, hypercholesterolemia, frequent urination. SURGICAL HISTORY: Total hysterectomy, bladder sling, C-scope, lipoma removed from the left thigh. Possibly had a history of a DVT in her leg. CURRENT MEDICATIONS: On admission: 1. She was on metronidazole (Flagyl) 4 times a day. 2. Cipro 500 twice a day for the diverticulitis flare-up of a week ago. 3. Detrol LA 4 mg daily. 4. Lisinopril 10 mg daily. 5. Amaryl 1 mg before meals. 6. Premarin 1.25 mg daily. 7. Celexa 20 mg daily. 8. Atorvastatin 10 mg daily. 9. Aspirin 81 mg daily. 10. Amlodipine 5 mg daily. ALLERGIES: FLUCONAZOLE. FAMILY PSYCHOSOCIAL HISTORY: Cancer in brother and sisters. Depression in brother and sisters. Diabetes, brother, sister, grandparents. Hypertension in brother, sister. Children have seizures. Cigarette smoking, former smoker, quit 2007. Smoked for 38 years. Drug use negative. Alcohol use negative. SYSTEMS REVIEW: HEENT: No upper respiratory infection symptoms, cough, cold, or congestion. Cardiovascular: No chest pain, palpitations, or arrhythmias. Respiratory: No cough, cold, or congestion. Gastrointestinal: See chief complaint. She has abdominal pain, nausea, and constipation issues. Genitourinary: No dysuria, hematuria, frequency, or burning on urination. Musculoskeletal: No joint or bone abnormalities. Neurologic: No CVA, paralysis, or paresthesias. Gynecologic: No vaginal bleeding or lumps in her breasts. Endocrine: She has diabetes mellitus type 2. Integument: No rash, ulcerative changes, or yellow skin. PHYSICAL EXAMINATION: VITAL SIGNS: Height is 5 foot 2. Weight is 199 standing on the scales. Temperature 97.5. Pulse 70. Blood pressure 98/64. Respirations 17. Pulse ox 93% on room air. HEENT: Pupils equal, round, and reactive to light and accommodation. Extraocular muscles intact. Throat is clear. Nose is clear. Tympanic membranes are abdi. NECK: Supple. No JV distention. No hepatojugular reflux. No carotid bruits. Thyroid smooth. CARDIOVASCULAR: Regular rate and rhythm without murmurs, clicks, rubs, or gallops. RESPIRATORY: Clear to auscultation and percussion. ABDOMEN: Tender in the periumbilical area and suprapubic area. EXTREMITIES: No pedal edema. No cyanosis. No clubbing. Full range of motion. Peripheral pulses good. BREASTS, GYNECOLOGIC, AND RECTAL: Exam deferred. NEUROLOGIC: Cranial nerves II-XII intact. No gross defects. Sensation normal. Strength normal. Deep tendon reflexes seen bilaterally. Babinski is negative. Mental Status: Alert and oriented x3. IMPRESSION: 1. Acute sigmoid diverticulitis. Failed outpatient therapy. 2. Abdominal pain. 3. Diabetes mellitus type 2. 4. Hypertension. 5. Hypercholesterolemia. PLAN: IV Invanz 1 g q.daily and Flagyl 500 mg q.8 hours. MTDD
[2019-02-26] MEDS: CITALOPRAM 20 MG TABLET PO SCH (10:32)
[2019-02-26] MEDS: AMLODIPINE BESYLATE 5MG TAB PO SCH (10:32)
[2019-02-26] MEDS: GLIMEPIRIDE 2 MG TABLET PO SCH (10:32)
[2019-02-26] MEDS: LISINOPRIL 10 MG TABLET PO SCH (10:32)
[2019-02-26] MEDS: ASPIRIN 81 MG CHEWABLE TABLET PO SCH (10:32)
[2019-02-26] MEDS: CONJUGATED ESTROGENS 1.25 MG PO SCH (10:43)
[2019-02-26] MEDS: TOLTERODINE TARTRATE 4 MG PO SCH (10:44)
[2019-02-26] MEDS ORDERED: ENOXAPARIN 100 MG/ML SYR SQ ONE (12:42)
--- NOTE | 2019-02-26 12:44 | Discharge Note ---
VTE H&P Assessment - Risk for VTE Risk for VTE: Yes Risk Level: Moderate Risk Assessment Date: 02/26/19 Risk Assessment Time: 12:44 VTE Orders Placed or Will Be Placed: Yes Discharge Medications - Discharge Medications Prescriptions: Sulfamethoxazole/Trimethoprim [Bactrim Ds Tablet] 1 each PO BID #28 tablet Dicyclomine HCl [Bentyl] 20 mg PO QID PRN #20 cap PRN Reason: Pain - Mod To Severe (5-10) Home Medications: Ambulatory Orders Amlodipine Besylate [Norvasc] 5 mg PO DAILY 04/09/15 [Last Taken 02/24/19] Atorvastatin Calcium 10 mg PO DAILY 04/09/15 [Last Taken 02/24/19] Citalopram Hydrobromide [Celexa] 20 mg PO DAILY 04/09/15 [Last Taken 02/24/19] Glimepiride [Amaryl] 1 mg PO DAILY 04/09/15 [Last Taken 02/24/19] Lisinopril 10 mg PO DAILY 04/09/15 [Last Taken 02/24/19] Estrogens, Conjugated [Premarin] 1.25 mg PO DAILY 02/14/16 [Last Taken 02/24/19] Tolterodine Tartrate [Detrol LA] 4 mg PO DAILY 02/14/16 [Last Taken 02/24/19] Aspirin 81 mg PO QD tab.chew 06/16/17 [Last Taken 02/24/19] Ciprofloxacin HCl [Cipro] 500 mg PO Q12HR #20 tablet 02/17/19 [Last Taken 02/24/19] Metronidazole [Flagyl] 500 mg PO QID #40 tablet 02/17/19 [Last Taken 02/24/19] Metronidazole 1 tab PO QID 02/25/19 [Last Taken 02/25/19] Acetaminophen [Tylenol 500Mg Tab] 1,000 mg PO Q6H PRN tablet 02/26/19 [Last Taken Unknown] Dicyclomine HCl [Bentyl] 20 mg PO QID PRN #20 cap 02/26/19 [Last Taken Unknown] Sulfamethoxazole/Trimethoprim [Bactrim Ds Tablet] 1 each PO BID #28 tablet 02/26/19 [Last Taken Unknown] Discharge Note - Date Date of Discharge Note: 02/26/19 Disposition: Home, Self-Care Condition: (1) Good Additional Instructions: Follow up appointment with Dr. Turner on March 05 at 1:30pm. . Provided low fiber handout (follow short term once diet advanced to solids until follow up or once symptoms are gone) and high fiber diet to follow after symptoms are gone. Referrals: BERNARD TURNER [Primary Care Provider] - Forms: Patient Portal Access Activity at Discharge: Increase Activity as Tolerated Diet at Discharge: Other (low fiber diet for 6 weeks)
--- NOTE | 2019-02-28 13:40 | Discharge Summary ---
DATE: 02/26/2019 at 1 p.m. DISCHARGE DIAGNOSES: 1. Acute diverticulitis, failed outpatient therapy. 2. Abdominal pain, resolving. 3. Diabetes mellitus type 2. 4. Hypertension. 5. Hypercholesterolemia. 6. She also states she is allergic to AMOXICILLIN. ATTENDING PHYSICIAN: Warner Pena DO REASON FOR HOSPITALIZATION: Abdominal pain, worsening diverticulitis. This 53-year-old female presented for the second time to the emergency department for abdominal pain. She was diagnosed with diverticulitis 6-7 days earlier and came back. She was placed on Cipro and Flagyl. She states the pain got worse. She vomited 1-2 times. Her last bowel movement was 2 dysuria prior to coming to the ER the second time. She has had 3 other episodes of diverticulitis in the past. She required Dilaudid and was admitted to the hospital by the ER doctor for IV antibiotics of Invanz and Flagyl. SIGNIFICANT FINDINGS: Abdomen/pelvis CT showing a mild segmental wall thickening of the proximal sigmoid colon with mild adjacent mesenteric fat haziness suspicious for mild colitis. No definitive intraluminal air. Otherwise unremarkable. Stool in the colon. Urine was negative. WBC was 7500, hemoglobin 10.2, potassium is a little bit low in the emergency department at 3.2, resolved at 3.8 today. BUN is 5, creatinine is 0.4, sodium is 141. As stated already, the urine is negative for infection. Lipase is normal. Hepatic function testing normal. HOSPITAL COURSE: She was given IV Invanz 1 g q.24 h. 2 doses, also IV Flagyl 500 q.8 h. She is feeling much better. She tolerated clear liquids. She has some tenderness in the right upper quadrant. We switched her over to Bentyl, Tylenol for pain control. At this point, she is stable for discharge. Follow up with Dr. Schroeder in 1 week. She has an appointment on 05/06/2019. DISCHARGE INSTRUCTIONS: Follow up with Dr. Schroeder in 1 week. Bactrim double strength b.i.d. plus Cipro 500 four times a day. She is allergic to AMOXICILLIN, so we cannot go with Augmentin. She failed Cipro outpatient initially. Bentyl 20 mg t.i.d. p.r.n. pain. Tylenol 1000 mg q.6-8 h. p.r.n. pain. Advance her diet to a low-fiber diet. She is on clear liquids at this time and some full liquids. RADHA
== END 2019-02-26 14:12 | disposition home or self-care (01) ==
LOC: ER 22:21 → INTOOBSV 02-25 02:38 → MEDSURG 02-25 02:38
PROVIDERS: ADMIT Emergency Medicine; ATTEND Emergency Medicine
DX: K57.32 Diverticulitis of large intestine without perforation or abscess without bleeding (principal); I10 Essential (primary) hypertension; E11.9 Type 2 diabetes mellitus without complications; E78.00 Pure hypercholesterolemia, unspecified; R35.0 Frequency of micturition; F81.9 Developmental disorder of scholastic skills, unspecified; Z86.718 Personal history of other venous thrombosis and embolism
CPT/HCPCS: 74176; 80048; 80053; 81003; 83690; 85025; 96365; 99217; 99220; 99285; J1650; J2405; J7030

== ENCOUNTER 2019-04-10 23:56 | Emergency (ER) | payer MEDICAID ==
[2019-04-11] MEDS ORDERED: ONDANSETRON HCL IV 4 MG/2 ML VIAL IVP ONE (00:06)
[2019-04-11] MEDS ORDERED: MORPHINE SULFATE 5 MG/ML VIAL IVP ONE (00:06)
--- NOTE | 2019-04-11 00:11 | Emergency Department Record ---
History of Present Illness - General Chief Complaint: Abdominal Pain Stated Complaint: ABD PAIN X 3 WEEKS Time Seen by Provider: 04/11/19 00:00 Source: Patient Mode of Arrival: Ambulatory Limitations: No limitations - History of Present Illness Initial Comments: 63 yo female returns to ED for evaluation of continued diffuse abdominal pain symptoms. Patient reports that she was diagnosed and treated for diverticulitis 5 weeks ago, reports that her pain symptoms have never resolved and that her symptoms seem to be worsening this evening. Patient reports that she is still taking Bactrim for her symptoms as well. Patient denies fevers, chills, nausea, or vomiting symptoms. Patient denies urinary symptoms as well. MD Complaint: Abdominal pain Onset/Timin -: Month(s) Location: Diffuse Severity: Moderate Quality: Aching Consistency: Constant Improves With: Nothing Worsens With: Nothing Associated Symptoms: Denies other symptoms - Related Data Patient : No Previous Rx's Medication Instructions Recorded Ciprofloxacin HCl [Cipro] 500 mg PO Q12HR #20 tablet 02/17/19 Metronidazole [Flagyl] 500 mg PO QID #40 tablet 02/17/19 Acetaminophen [Tylenol 500Mg Tab] 1,000 mg PO Q6H PRN tablet 02/26/19 Dicyclomine HCl [Bentyl] 20 mg PO QID PRN #20 cap 02/26/19 Sulfamethoxazole/Trimethoprim 1 each PO BID #28 tablet 02/26/19 [Bactrim Ds Tablet] Polyethylene Glycol 3350 [Miralax] 1 packet PO DAILY #15 packet 04/11/19 Allergies Allergy/AdvReac Type Severity Reaction Status Date / Time fluconazole [From Diflucan] Allergy HIVES Verified 02/17/19 13:08 Review of Systems Constitutional: Denies: Chills, Fever, Malaise, Night sweats Eyes: Denies: Eye discharge, Eye pain ENT: Denies: Congestion, Ear pain, Epistaxis Respiratory: Denies: Cough, Dyspnea Cardiovascular: Denies: Chest pain, Dyspnea on exertion Endocrine: Denies: Fatigue, Heat or cold intolerance Gastrointestinal: Reports: Abdominal pain. Denies: Constipation, Diarrhea, Vomiting Genitourinary: Denies: Incontinence, Retention Musculoskeletal: Denies: Arthralgia, Back pain Skin: Denies: Bruising, Change in color Neurological: Denies: Abnormal gait, Confusion, Headache, Tingling, Tremors Psychiatric: Denies: Anxiety Hematological/Lymphatic: Denies: Anemia, Blood Clots Past Medical History - SOCIAL HISTORY Smoking Status: Former smoker Alcohol Use: None Drug Use: None - RESPIRATORY Hx Respiratory Disorders: No - CARDIOVASCULAR Hx Cardio Disorders: Yes Hx Deep Vein Thrombosis: Yes Hx Hypertension: Yes - NEURO Hx Neuro Disorders: No - GI Hx GI Disorders: Yes Hx Diverticulitis: Yes - Hx Genitourinary Disorders: Yes Hx Bladder Problem: Yes (bladder frequency) Hx UTI: Yes - ENDOCRINE Hx Endocrine Disorders: Yes Hx Diabetes: Yes Hx Thyroid Disease: No Comment:: checks blood sugars daily - MUSCULOSKELETAL Hx Musculoskeletal Disorders: No Comment:: lump left upper leg - PSYCH Hx Psych Problems: Yes Hx Depression: Yes Comment:: learning disabilities - HEMATOLOGY/ONCOLOGY Hx Hematology/Oncology Disorders: Yes Hx Blood Transfusions: Yes (related to bleeding from injury due to a fall) Hx Blood Transfusion Reaction: No Family Medical History Any Significant Family History?: Yes Hx Cancer: Brother/Sister Hx Depression: Brother/Sister Hx Diabetes: Brother/Sister, Grandparents Hx HTN: Brother/Sister Hx Seizures: Children Physical Exam - General General Appearance: Alert, Oriented x3, Cooperative, Mild distress Limitations: No limitations - Head Head exam: Atraumatic, Normocephalic, Normal inspection Head exam detail: negative: Abrasion, Contusion, Rodriguez's sign, General tenderness, Hematoma, Laceration - Eye Eye exam: Normal appearance. negative: Conjunctival injection, Periorbital swelling, Periorbital tenderness, Scleral icterus - ENT Ear exam: negative: Auricular hematoma, Auricular trauma Nasal Exam: negative: Active bleeding, Discharge, Dried blood, Foreign body Mouth exam: negative: Drooling, Laceration, Muffled voice, Tongue elevation - Neck Neck exam: Normal inspection. negative: Meningismus, Tenderness - Respiratory Respiratory exam: Normal lung sounds bilaterally. negative: Respiratory distress, Rhonchi, Stridor, Wheezes - Cardiovascular Cardiovascular Exam: Regular rate, Normal rhythm, Normal heart sounds - GI/Abdominal GI/Abdominal exam: Soft, Tenderness (Diffuse TTP on examination, no rebound or guarding symptoms are present on examination.). negative: Rebound, Rigid - Rectal Rectal exam: Deferred - exam: Deferred - Extremities Extremities exam: Normal inspection. negative: Pedal edema, Tenderness - Back Back exam: Denies: CVA tenderness (R), CVA tenderness (L) - Neurological Neurological exam: Alert, Normal gait, Oriented X3 - Psychiatric Psychiatric exam: Normal affect, Normal mood - Skin Skin exam: Normal color. negative: Abrasion Type of lesion: negative: abrasion Course - Reevaluation(s) Reevaluation #1: 04/11/19 00:11 Recent records were reviewed: CT Abdomen and Pelvis 02/25/19: Sigmoid diverticulitis Patient was admitted 02/26-02/28 with discharge home for outpatient treatment of her symptoms. Reevaluation #2: 04/11/19 01:01 Laboratory studies were reviewed and are grossly unremarkable for an acute p rocess. Patient is back from CT imaging, reports improvement in her pain symptoms on re-examination. Reevaluation #3: 04/11/19 01:25 CT Abdomen and Pelvis: Prominence of stool throughout the colon Right sided fat containing hernia Diverticulosis Karli-umbilical hernia Small right sided renal cortical cyst Left sided non-obstructing nephrolithiasis Patient was updated on all results, history and examination appear ,ore c/w constipation than failed outpatient diverticulitis. Will initiate treatment with Miralax as directed. Patient appears stable for discharge at this time. Medical Decision Making - Lab Data Result diagrams: 04/11/19 00:15 04/11/19 00:15 Disposition Disposition: Discharge Clinical Impression: Constipation Qualifiers: Constipation type: unspecified constipation type Qualified Code(s): K59.00 - Constipation, unspecified Abdominal pain Qualifiers: Abdominal location: generalized Qualified Code(s): R10.84 - Generalized abdominal pain Disposition: Home, Self-Care Condition: (2) Stable Instructions: Constipation (ED) Additional Instructions: Return to ED if your symptoms worsen or if you have any concerns. Miralax as directed. Follow-up with your family doctor in 3-5 days as directed. Prescriptions: Polyethylene Glycol 3350 [Miralax] 1 packet PO DAILY #15 packet Forms: Patient Portal Access Time of Disposition: : Quality - Quality Measures Quality Measures: N/A - Blood Pressure Screening Does Patient Have Any of the Following: No Blood Pressure Classification: Pre-Hypertensive BP Reading Systolic Measurement: 134 Diastolic Measurement: 89 Screening for High Blood Pressure: < Pre-Hypertensive BP, F/U Documented > [G8950] Pre-Hypertensive Follow-up Interventions: Referral to alternative/primary care provider.
[2019-04-11] MEDS ORDERED: 0.9 % SODIUM CHLORIDE 1000ML 1,000 ML IV SCH (00:15)
[2019-04-11 00:25] LABS: ABSOLUTE NEUTROPHIL COUNT 4.04; BASO % 0.3 % (0-6); EOS % 1.8 % (0-6); GRAN % 50.9 % (47-80); HEMATOCRIT 39.3 % (35.0-47.0); HEMOGLOBIN 12.7 gm/dl (11.6-16.0); LYMPH % 39.3 % (16-45); MEAN CELL VOLUME 91.6 fl (81-97); MEAN CORPUSCULAR HEMOGLOBIN 29.6 pg (27-33); MEAN CORPUSCULAR HGB CONC 32.3 g/dl (32-36); MEAN PLATELET VOLUME 9.2 fl (7.4-10.4); MONO % 7.7 % (0-9); PLATELET COUNT 210 K/uL (130-400); RED BLOOD COUNT 4.29 M/uL (3.80-5.40); RED CELL DISTRIBUTION WIDTH 14.1 % (11.5-14.5); WHITE BLOOD COUNT W/O DIFF 7.9 K/uL (4.2-12.2)
[2019-04-11 00:37] LABS: BLOOD UREA NITROGEN 17 mg/dL (8-23); CREATININE 0.6 mg/dL (0.5-0.9); EST GLOMERULAR FILTRATION RATE > 60 mL/min
[2019-04-11 00:38] LABS: LIPASE 21 U/L (13-60); TOTAL PROTEIN 7.3 g/dL (6.6-8.7)
[2019-04-11 00:39] LABS: GLUCOSE,RANDOM 93 mg/dL (74-109)
[2019-04-11 00:42] LABS: ALB/GLOB RATIO 1.3 (1.1-1.8); ALBUMIN 4.1 g/dL (4.0-5.0); ALKALINE PHOSPHATASE 36 U/L (35-104); ALT/SGPT 15 U/L (<33); AST/SGOT 23 U/L (10.0-35.0)
[2019-04-11 01:34] LABS: URINE APPEARANCE CLEAR; URINE BILIRUBIN NEGATIVE (NEGATIVE); URINE BLOOD NEGATIVE (NEGATIVE); URINE COLOR YELLOW; URINE GLUCOSE (UA) NEGATIVE (NEGATIVE); URINE KETONE NEGATIVE (NEGATIVE); URINE LEUKOCYTE ESTERASE NEGATIVE (NEGATIVE); URINE NITRITE NEGATIVE (NEGATIVE); URINE PROTEIN NEGATIVE (NEGATIVE); URINE UROBILINOGEN 0.2 E.U./dL (0.20 - 1.00)
--- NOTE | 2019-04-12 08:12 | CT SCAN REPORT ---
EXAM: CT OF THE ABDOMEN AND PELVIS WITH CONTRAST HISTORY: GENERALIZED ABDOMINAL PAIN FOR SEVERAL WEEKS. TECHNIQUE: Contrast enhanced helical CT examination of the abdomen and pelvis was performed including delayed images through the kidneys with 100 ml of Omnipaque 300 utilized. Comparison: CT of the abdomen and pelvis without contrast dated 02/25/19. CT of the abdomen and pelvis with contrast dated 02/17/19. FINDINGS: There is minimal dependent atelectasis in each lung base. The visualized lung bases are otherwise clear. No pleural or pericardial effusion. The heart is not grossly enlarged. There is calcification of the visualized mid to distal right coronary artery. Mild diffuse decreased density of the liver relative to the spleen redemonstrated consistent with steatosis. Hypertrophy of the left liver lobe is again suggested. No new focal hepatic lesion. The gallbladder is unremarkable and no biliary ductal dilatation is seen. No new focal pancreatic parenchymal lesion identified. The pancreatic duct at the level of the body is visualized and borderline prominent. No obstructing lesion is, however, identified. A too small to characterize hypodense focus is demonstrated within the superior aspect of the spleen. This measures 7 mm. This is present on the prior contrast enhanced examination. It is nonspecific, but likely a cyst or hemangioma. The spleen is otherwise normal in appearance. The adrenal glands are normal in appearance. A tiny nonobstructing calculus is again noted within the lower pole of the left kidney. A couple too small to characterize hypodense lesions are noted within the right renal cortex with the largest located laterally in the lower pole measuring 8 mm. These are unchanged. They are nonspecific, but likely cysts. The kidneys are otherwise normal in appearance. No new intraabdominal nor retroperitoneal lymphadenopathy. The portal vein and splenic vein are patent. There is diffuse atherosclerosis without aneurysmal dilatation of the abdominal aorta nor iliac arteries. No new pelvic mass nor adenopathy. An oval fluid collection is again noted deep within the right hemipelvis measuring 2.6 x 2.0 cm. This does not appear significantly changed. There is also suggestion of a small left ovarian cyst versus paraovarian cyst on the left measuring 1.4 cm in diameter. This is also not significantly changed given differences in technique. The uterus is surgically absent. Mild fat density prominence is again noted within the right inguinal canal consistent with small hernia. This does not appear complicated. There is redemonstration of a complex cystic area in the region of the left vaginal wall measuring 17 mm in maximum diameter. There is associated calcification. This is unchanged. This remains of indeterminate etiology though a benign cyst is favored. No new lytic or blastic bone lesion. A small fat filled umbilical hernia is again noted. No gross bowel dilatation nor bowel wall thickening. Diverticulosis of the distal colon is redemonstrated. The appendix is visualized and normal in appearance. There is a moderate to large amount of stool throughout the colon. IMPRESSION: 1. NO DEFINITE CT EVIDENCE OF AN ACUTE INTRAABDOMINAL NOR INTRAPELVIC PROCESS. 2. THE APPARENT MILD WALL THICKENING OF THE DISTAL COLON DEMONSTRATED ON THE PRIOR EXAMINATION APPEARS LESS PRONOUNCED AND THE RESIDUAL LIKELY RELATES TO INCOMPLETE DISTENTION RATHER THAN MILD COLITIS. 3. MODERATE TO LARGE AMOUNT OF STOOL THROUGHOUT THE COLON. 4. NORMAL APPENDIX. 5. STATUS POST HYSTERECTOMY. CYSTIC AREAS WITHIN THE PELVIS ARE STABLE. THEY ARE NONSPECIFIC, BUT LIKELY BENIGN. 6. COMPLEX CYSTIC AREA AGAIN NOTED WITHIN THE LEFT VAGINAL WALL IS OF INDETERMINATE ETIOLOGY THOUGH LIKELY A BENIGN CYST. 7. RIGHT INGUINAL HERNIA REDEMONSTRATED UNCOMPLICATED. 8. HEPATIC STEATOSIS WITH HYPERTROPHY OF THE LEFT LIVER LOBE. JOB NUMBER: [id number] MTDD
== END 2019-04-11 01:52 | disposition home or self-care (01) ==
LOC: ER 23:56
DX: K59.00 Constipation, unspecified (principal); R10.84 Generalized abdominal pain; K57.32 Diverticulitis of large intestine without perforation or abscess without bleeding; I10 Essential (primary) hypertension; Z87.891 Personal history of nicotine dependence
CPT/HCPCS: 74177; 80053; 81003; 83690; 85025; 96374; 96375; 99284; J2405; J7030

== ENCOUNTER 2019-06-27 07:19 | Emergency (ER) | payer MEDICAID ==
[2019-06-27] MEDS ORDERED: MECLIZINE 25 MG TABLET PO ONE (07:38)
--- NOTE | 2019-06-27 07:38 | Emergency Department Record ---
History of Present Illness - General Chief Complaint: Dizziness Stated Complaint: DIZZY/NAUSEA Time Seen by Provider: 06/27/19 07:23 Source: Patient, RN notes reviewed Mode of Arrival: Wheelchair - History of Present Illness Initial Comments: patient is dizzy and she has a spinning sensation and nausea and no headache and no blurred vision and URI symptoms last week and got better with theraflu. She also states burning on urination and a lump on the right buttock which is not tendor. Patient states constipated and last BM 2 hours ago small amount. Examined rectal area with Hannah and she has a hemorroidal tag not swollen ,not red or painful to touch. advised her to follow up with family Dr on that issue MD Complaint: Dizziness -: Awoke with symptoms Timing: Awoke with symptoms Description: "Room spinning" History of Same: Yes History of Trauma: No Severity: Mild Improves With: Nothing Worsens With: Nothing Associated Symptoms: Denies other symptoms - Jessica Coma Scale Eye Response: (4) Open spontaneously Motor Response: (6) Obeys commands Verbal Response: (5) Oriented [place] Total: 15 - Related Data Previous Rx's Medication Instructions Recorded Acetaminophen [Tylenol 500Mg Tab] 1,000 mg PO Q6H PRN tablet 02/26/19 Meclizine HCl [Antivert] 25 mg PO Q8H #30 tablet 06/27/19 Allergies Allergy/AdvReac Type Severity Reaction Status Date / Time amoxicillin Allergy HIVES Verified 06/27/19 07:26 fluconazole [From Diflucan] Allergy HIVES Verified 02/17/19 13:08 Penicillins Allergy HIVES Verified 06/27/19 07:26 Travel Screening - Travel/Exposure Within Last 30 Days Have you traveled within the last 30 days?: No Review of Systems Reviewed: No additional complaints except as noted below Constitutional: Reports: As per HPI. Denies: Chills, Fever, Malaise, Night sweats, Weakness, Weight change Eyes: Reports: As per HPI. Denies: Eye discharge, Eye pain, Photophobia, Vision change ENT: Reports: As per HPI. Denies: Congestion, Dental pain, Ear pain, Epistaxis, Hearing loss, Throat pain Respiratory: Reports: As per HPI. Denies: Cough, Dyspnea, Hemoptysis, Stridor, Wheezes Cardiovascular: Reports: As per HPI. Denies: Arrhythmia, Chest pain, Dyspnea on exertion, Edema, Murmurs, Orthopnea, Palpitations, Paroxysmal nocturnal dyspnea, Rheumatic Fever, Syncope Endocrine: Reports: As per HPI. Denies: Fatigue, Heat or cold intolerance, Poly dipsia, Polyuria Gastrointestinal: Reports: As per HPI. Denies: Abdominal pain, Constipation, Diarrhea, Hematemesis, Hematochezia, Melena, Nausea, Vomiting Genitourinary: Reports: As per HPI, Dysuria, Frequency. Denies: Abnormal menses, Discharge, Dyspareunia, Hematuria, Incontinence, Retention, Urgency Musculoskeletal: Reports: As per HPI. Denies: Arthralgia, Back pain, Gout, Joint swelling, Myalgia, Neck pain Skin: Reports: As per HPI. Denies: Bruising, Change in color, Change in hair/nails, Lesions, Pruritus, Rash Neurological: Reports: As per HPI, Vertigo. Denies: Abnormal gait, Confusion, Headache, Numbness, Paresthesias, Seizure, Tingling, Tremors, Weakness Psychiatric: Reports: As per HPI. Denies: Anxiety, Auditory hallucinations, Depression, Homicidal thoughts, Suicidal thoughts, Visual hallucinations Hematological/Lymphatic: Reports: As per HPI. Denies: Anemia, Blood Clots, Easy bleeding, Easy bruising, Swollen glands Past Medical History - SOCIAL HISTORY Smoking Status: Former smoker - RESPIRATORY Hx Respiratory Disorders: No - CARDIOVASCULAR Hx Cardio Disorders: Yes Hx Deep Vein Thrombosis: Yes Hx Hypertension: Yes - NEURO Hx Neuro Disorders: No - GI Hx GI Disorders: Yes Hx Diverticulitis: Yes - Hx Genitourinary Disorders: Yes Hx Bladder Problem: Yes (bladder frequency) Hx UTI: Yes - ENDOCRINE Hx Endocrine Disorders: Yes Hx Diabetes: Yes Hx Thyroid Disease: No Comment:: checks blood sugars daily - MUSCULOSKELETAL Hx Musculoskeletal Disorders: No Comment:: lump left upper leg - PSYCH Hx Psych Problems: Yes Hx Depression: Yes Comment:: learning disabilities - HEMATOLOGY/ONCOLOGY Hx Hematology/Oncology Disorders: Yes Hx Blood Transfusions: Yes (related to bleeding from injury due to a fall) Hx Blood Transfusion Reaction: No Family Medical History Any Significant Family History?: Yes Hx Cancer: Brother/Sister Hx Depression: Brother/Sister Hx Diabetes: Brother/Sister, Grandparents Hx HTN: Brother/Sister Hx Seizures: Children Physical Exam - General General Appearance: Alert, Oriented x3, Cooperative, No acute distress - Head Head exam: Normal inspection - Eye Eye exam: Normal appearance, PERRL Pupils: Normal accommodation - ENT ENT exam: Normal exam, Mucous membranes moist, Normal external ear exam, Normal orophraynx, TM's normal bilaterally Ear exam: Normal external inspection. negative: External canal tenderness Nasal Exam: Normal inspection. negative: Discharge, Sinus tenderness Mouth exam: Normal external inspection, Tongue normal Teeth exam: Normal inspection. negative: Dental caries Throat exam: Normal inspection. negative: Tonsillar erythema, Tonsillar exudate - Neck Neck exam: Normal inspection, Full ROM. negative: Tenderness - Respiratory Respiratory exam: Normal lung sounds bilaterally. negative: Respiratory distress - Cardiovascular Cardiovascular Exam: Regular rate, Normal rhythm, Normal heart sounds - GI/Abdominal GI/Abdominal exam: Soft, Normal bowel sounds. negative: Tenderness - Rectal Rectal exam: Hemorrhoids (hemoarrhoidal tag not swollen or painful and she has a small blackhead near the rectum ) - exam: Deferred - Extremities Extremities exam: Normal inspection, Full ROM, Normal capillary refill. negative: Tenderness - Back Back exam: Reports: Normal inspection, Full ROM. Denies: Muscle spasm, Rash noted, Tenderness - Neurological Neurological exam: Alert, Normal gait, Oriented X3, Reflexes normal, Other (vertigo with nystagmus horizontal with head motion both sides) - Psychiatric Psychiatric exam: Normal affect, Normal mood - Skin Skin exam: Dry, Intact, Normal color, Warm Course Vital Signs 06/27/19 07:22 Temperature 98.1 F Pulse Rate 100 H Respiratory 20 Rate Blood Pressure 146/91 Pulse Ox 96 - Reevaluation(s) Reevaluation #1: feeling better 06/27/19 08:44 Medical Decision Making - Data Complexity MDM Data: X-Ray Ordered and/or Reviewed (urine looks contaminated and will wait on culture) - Lab Data Result diagrams: 06/27/19 07:54 06/27/19 07:54 Disposition Clinical Impression: BPV (benign positional vertigo) Qualifiers: Laterality: unspecified laterality Qualified Code(s): H81.10 - Benign paroxysmal vertigo, unspecified ear Disposition: Home, Self-Care Condition: (1) Good Instructions: Benign Paroxysmal Positional Vertigo (ED) Additional Instructions: follow up with family in 5 days Prescriptions: Meclizine HCl [Antivert] 25 mg PO Q8H #30 tablet Forms: Patient Portal Access Time of Disposition: 08:48 Quality - Quality Measures Quality Measures: N/A - Blood Pressure Screening Does Patient Have Any of the Following: No Blood Pressure Classification: Hypertensive Reading Systolic Measurement: 146 Diastolic Measurement: 91 Screening for High Blood Pressure: < Pre-Hypertensive BP, F/U Documented > [G8950] Pre-Hypertensive Follow-up Interventions: Referral to alternative/primary care provider.
[2019-06-27 07:59] LABS: ABSOLUTE NEUTROPHIL COUNT 3.51; BASO % 0.4 % (0-6); EOS % 3.6 % (0-6); GRAN % 45.6 % (47-80); HEMATOCRIT 35.1 % (35.0-47.0); HEMOGLOBIN 11.4 gm/dl (11.6-16.0); LYMPH % 41.2 % (16-45); MEAN CELL VOLUME 91.6 fl (81-97); MEAN CORPUSCULAR HGB CONC 32.5 g/dl (32-36); MEAN PLATELET VOLUME 9.4 fl (7.4-10.4); MONO % 9.2 % (0-9); PLATELET COUNT 181 K/uL (130-400); RED BLOOD COUNT 3.83 M/uL (3.80-5.40); RED CELL DISTRIBUTION WIDTH 13.2 % (11.5-14.5); WHITE BLOOD COUNT W/O DIFF 7.7 K/uL (4.2-12.2)
[2019-06-27 08:01] LABS: MEAN CORPUSCULAR HEMOGLOBIN 29.7 pg (27-33)
[2019-06-27 08:02] LABS: URINE APPEARANCE CLEAR; URINE BILIRUBIN NEGATIVE (NEGATIVE); URINE BLOOD TRACE-I (NEGATIVE); URINE COLOR YELLOW; URINE GLUCOSE (UA) NEGATIVE (NEGATIVE); URINE KETONE NEGATIVE (NEGATIVE); URINE LEUKOCYTE ESTERASE TRACE (NEGATIVE); URINE NITRITE POSITIVE (NEGATIVE); URINE PROTEIN NEGATIVE (NEGATIVE); URINE UROBILINOGEN 0.2 E.U./dL (0.20 - 1.00)
[2019-06-27 08:08] LABS: URINE BACTERIA 2+; URINE RBC 0 - 2 (NONE SEEN); URINE WBC 0 - 2 (0-2/hpf)
[2019-06-27 08:12] LABS: BLOOD UREA NITROGEN 10 mg/dL (8-23); CREATININE 0.4 mg/dL (0.5-0.9); EST GLOMERULAR FILTRATION RATE > 60 mL/min
[2019-06-27 08:15] LABS: GLUCOSE,RANDOM 121 mg/dL (74-109)
== END 2019-06-27 09:13 | disposition home or self-care (01) ==
LOC: ER 07:19
DX: H81.10 Benign paroxysmal vertigo, unspecified ear (principal); N39.0 Urinary tract infection, site not specified; R11.0 Nausea; R51 Headache; R30.0 Dysuria; I10 Essential (primary) hypertension; Z87.891 Personal history of nicotine dependence
CPT/HCPCS: 80048; 81001; 81003; 85025; 99283; 99284

== ENCOUNTER 2019-06-27 23:43 | Emergency (ER) | payer MEDICAID ==
[2019-06-27] MEDS ORDERED: NITROFURANTOIN MONO 100 MG CAPSULE PO ONE ×2 (23:55→23:59)
[2019-06-27 23:56] LABS: URINE APPEARANCE SL CLOUDY; URINE BILIRUBIN NEGATIVE (NEGATIVE); URINE BLOOD MODERATE (NEGATIVE); URINE COLOR YELLOW; URINE GLUCOSE (UA) NEGATIVE (NEGATIVE); URINE KETONE NEGATIVE (NEGATIVE); URINE LEUKOCYTE ESTERASE SMALL (NEGATIVE); URINE NITRITE NEGATIVE (NEGATIVE); URINE UROBILINOGEN 0.2 E.U./dL (0.20 - 1.00)
[2019-06-27] MEDS ORDERED: PHENAZOPYRIDINE HCL 95 MG TABLET PO ONE (23:56)
--- NOTE | 2019-06-28 | Emergency Department Record ---
History of Present Illness - General Chief complaint: Flank Pain Stated complaint: KIDNEY INFECTION Time Seen by Provider: 06/27/19 23:46 Source: Patient Mode of Arrival: Ambulatory Limitations: No limitations - History of Present Illness Initial comments: 63 yo female presents with urinary frequency and burning. The onset was about 2 days ago. She denies and fever. No nausea, vomiting or diarrhea. She was treated for dizziness earlier in the day with Antivert in the ED. She states that is much improved. The discomfort with urination is not improved. She did have a urinalysis this morning that was Nitrite positive, LE positive with +2 Bacteria. She does not have a prescription for an antibiotic. No back pain. She did see a small tinge of blood in the urine tonight. MD Complaint: Dysuria Onset/Timin -: Days(s) Location: Suprapubic Radiation: Suprapubic Severity: Moderate Quality: Burning Consistency: Constant Improves with: None Worsens with: Urination Associated Symptoms: Denies other symptoms - Related Data Previous Rx's Medication Instructions Recorded Acetaminophen [Tylenol 500Mg Tab] 1,000 mg PO Q6H PRN tablet 02/26/19 Meclizine HCl [Antivert] 25 mg PO Q8H #30 tablet 06/27/19 Nitrofurantoin Monohyd/M-Cryst 100 mg PO BID #14 capsule 06/27/19 [Macrobid 100 mg Capsule] Phenazopyridine HCl [Pyridium] 100 mg PO TID #6 tablet 06/27/19 Allergies Allergy/AdvReac Type Severity Reaction Status Date / Time amoxicillin Allergy HIVES Verified 06/27/19 07:26 fluconazole [From Diflucan] Allergy HIVES Verified 02/17/19 13:08 Penicillins Allergy HIVES Verified 06/27/19 07:26 Travel Screening - Travel/Exposure Within Last 30 Days Have you traveled within the last 30 days?: No - Travel/Exposure Within Last Year Have you traveled outside the [place] in the last year?: No - Additonal Travel Details Have you been exposed to anyone with a communicable illness?: No - Travel Symptoms Symptom Screening: None Review of Systems Constitutional: Denies: Chills, Fever, Malaise, Weakness Eyes: Denies: Eye discharge, Eye pain, Photophobia, Vision change ENT: Denies: Congestion, Throat pain Respiratory: Denies: Cough, Dyspnea, Wheezes Cardiovascular: Denies: Chest pain, Edema, Palpitations, Syncope Endocrine: Denies: Fatigue, Polydipsia, Polyuria Gastrointestinal: Reports: Abdominal pain. Denies: Diarrhea, Nausea, Vomiting Genitourinary: Reports: Dysuria, Frequency, Hematuria, Urgency. Denies: Incontinence, Retention Musculoskeletal: Denies: Arthralgia, Back pain, Joint swelling, Myalgia, Neck pain Skin: Denies: Bruising, Change in color, Rash Neurological: Denies: Headache Psychiatric: Denies: Anxiety Hematological/Lymphatic: Denies: Easy bleeding, Easy bruising Past Medical History - SOCIAL HISTORY Smoking Status: Former smoker - RESPIRATORY Hx Respiratory Disorders: No - CARDIOVASCULAR Hx Cardio Disorders: Yes Hx Deep Vein Thrombosis: Yes Hx Hypertension: Yes - NEURO Hx Neuro Disorders: No - GI Hx GI Disorders: Yes Hx Diverticulitis: Yes - Hx Genitourinary Disorders: Yes Hx Bladder Problem: Yes (bladder frequency) Hx UTI: Yes - ENDOCRINE Hx Endocrine Disorders: Yes Hx Diabetes: Yes Hx Thyroid Disease: No Comment:: checks blood sugars daily - MUSCULOSKELETAL Hx Musculoskeletal Disorders: No Comment:: lump left upper leg - PSYCH Hx Psych Problems: Yes Hx Depression: Yes Comment:: learning disabilities - HEMATOLOGY/ONCOLOGY Hx Hematology/Oncology Disorders: Yes Hx Blood Transfusions: Yes (related to bleeding from injury due to a fall) Hx Blood Transfusion Reaction: No Family Medical History Any Significant Family History?: Yes Hx Cancer: Brother/Sister Hx Depression: Brother/Sister Hx Diabetes: Brother/Sister, Grandparents Hx HTN: Brother/Sister Hx Seizures: Children Physical Exam - General General Appearance: Alert, Oriented x3, Cooperative, No acute distress Limitations: No limitations - Head Head exam: Atraumatic, Normal inspection - Eye Eye exam: Normal appearance, PERRL. negative: Conjunctival injection, Scleral icterus - ENT ENT exam: Normal exam, Mucous membranes moist Ear exam: Normal external inspection Nasal Exam: Normal inspection Mouth exam: Normal external inspection - Neck Neck exam: Normal inspection - Respiratory Respiratory exam: Normal lung sounds bilaterally. negative: Respiratory distress, Rhonchi, Stridor, Wheezes - Cardiovascular Cardiovascular Exam: Regular rate, Normal rhythm, Normal heart sounds - GI/Abdominal GI/Abdominal exam: Soft, Tenderness (Mild suprapubic tenderness, soft). negative: Distended, Guarding, Rebound, Rigid - Rectal Rectal exam: Deferred - exam: Deferred - Back Back exam: Reports: Full ROM. Denies: CVA tenderness (R), CVA tenderness (L), Paraspinal tenderness, Tenderness, Vertebral tenderness - Neurological Neurological exam: Alert, Oriented X3 - Psychiatric Psychiatric exam: Normal affect, Normal mood - Skin Skin exam: Dry, Intact, Normal color, Warm Course - Reevaluation(s) Reevaluation #1: 06/28/19 00:08 The UA from this morning was reviewed She was given a dose of antibiotics in the ED with Rx provided We discussed the labs from this morning and she was provided a copy Disposition Disposition: Discharge Clinical Impression: Urinary tract infection Qualifiers: Urinary tract infection type: site unspecified Hematuria presence: without hematuria Qualified Code(s): N39.0 - Urinary tract infection, site not specified Disposition: Home, Self-Care Condition: (1) Good Instructions: Urinary Tract Infection in Women (ED) Additional Instructions: Review this ER visit and the tests performed with your family doctor Call your doctor for the next available follow up appointment Return to the ER for a recheck if worse, any new concerns or questions Take the prescriptions provided as directed Prescriptions: Nitrofurantoin Monohyd/M-Cryst [Macrobid 100 mg Capsule] 100 mg PO BID #14 capsule Phenazopyridine HCl [Pyridium] 100 mg PO TID #6 tablet Forms: Patient Portal Access Time of Disposition: 00:09 Quality - Quality Measures Quality Measures: N/A - Blood Pressure Screening Does Patient Have Any of the Following: Active Dx of HTN Blood Pressure Classification: Hypertensive Reading Systolic Measurement: 142 Diastolic Measurement: 92 Screening for High Blood Pressure: Patient Exclusion, Hx of HTN [G9744]
[2019-06-28 00:04] LABS: URINE BACTERIA FEW; URINE EPITHELIAL CELLS 0 - 2 (FEW); URINE WBC 36 - 50 (0-2/hpf)
== END 2019-06-28 00:15 | disposition home or self-care (01) ==
LOC: ER 23:43
DX: N39.0 Urinary tract infection, site not specified (principal); R42 Dizziness and giddiness; R30.0 Dysuria; I10 Essential (primary) hypertension; Z87.891 Personal history of nicotine dependence
CPT/HCPCS: 81003

== ENCOUNTER 2019-06-28 03:49 | Emergency (ER) | payer MEDICAID ==
[2019-06-28] MEDS ORDERED: KETOROLAC 30 MG/ML VIAL IVP ONE (03:50)
[2019-06-28] MEDS ORDERED: MORPHINE SULFATE 5 MG/ML VIAL IVP ONE (03:50)
--- NOTE | 2019-06-28 03:57 | Emergency Department Record ---
History of Present Illness - General Chief complaint: Female Urogenital Problem Stated complaint: PAIN WHEN URINATES Time Seen by Provider: 06/28/19 03:50 Source: Patient, Family Mode of Arrival: Ambulatory Limitations: No limitations - History of Present Illness Initial comments: 63 yo female presents with urinary frequency and burning. She was seen in the ED on 06/27/19. The UA was consistent with UTI. She returned in the evening and was started on antibiotics. She was given Macrobid in the ED. She returns now with increased lower suprapubic pain. She reports she did not take anything for pain prior to arrival. No back pain. No vomiting. No fever. No diarrhea. The CBC and BMP were normal less than 24 hours prior. No fever. MD Complaint: Dysuria Location: Suprapubic Radiation: Suprapubic Severity: Moderate Quality: Aching Consistency: Constant Improves with: None Worsens with: Urination Patient : No Associated Symptoms: Abdominal pain - Related Data Previous Rx's Medication Instructions Recorded Acetaminophen [Tylenol 500Mg Tab] 1,000 mg PO Q6H PRN tablet 02/26/19 Meclizine HCl [Antivert] 25 mg PO Q8H #30 tablet 06/27/19 Nitrofurantoin Monohyd/M-Cryst 100 mg PO BID #14 capsule 06/27/19 [Macrobid 100 mg Capsule] Phenazopyridine HCl [Pyridium] 100 mg PO TID #6 tablet 06/27/19 Hydrocodone/Acetaminophen [[place] 1 tab PO Q6H PRN #10 tab 06/28/19 5mg/325mg] Ondansetron [Zofran Odt] 4 mg PO Q8H #15 tab.rapdis 06/28/19 Allergies Allergy/AdvReac Type Severity Reaction Status Date / Time amoxicillin Allergy HIVES Verified 06/27/19 07:26 fluconazole [From Diflucan] Allergy HIVES Verified 02/17/19 13:08 Penicillins Allergy HIVES Verified 06/27/19 07:26 Review of Systems Constitutional: Denies: Chills, Fever, Malaise, Weakness Eyes: Denies: Eye discharge ENT: Denies: Congestion, Throat pain Respiratory: Denies: Cough, Dyspnea, Hemoptysis Cardiovascular: Denies: Chest pain, Palpitations, Syncope Endocrine: Denies: Fatigue Gastrointestinal: Reports: Abdominal pain. Denies: Diarrhea, Nausea, Vomiting Genitourinary: Reports: Dysuria, Frequency, Hematuria, Urgency Musculoskeletal: Denies: Arthralgia, Back pain Skin: Denies: Bruising, Change in color, Rash Neurological: Denies: Headache Psychiatric: Denies: Anxiety Hematological/Lymphatic: Denies: Easy bleeding, Easy bruising Past Medical History - SOCIAL HISTORY Smoking Status: Former smoker - RESPIRATORY Hx Respiratory Disorders: No - CARDIOVASCULAR Hx Cardio Disorders: Yes Hx Deep Vein Thrombosis: Yes Hx Hypertension: Yes - NEURO Hx Neuro Disorders: No - GI Hx GI Disorders: Yes Hx Diverticulitis: Yes - Hx Genitourinary Disorders: Yes Hx Bladder Problem: Yes (bladder frequency) Hx UTI: Yes - ENDOCRINE Hx Endocrine Disorders: Yes Hx Diabetes: Yes Hx Thyroid Disease: No Comment:: checks blood sugars daily - MUSCULOSKELETAL Hx Musculoskeletal Disorders: No Comment:: lump left upper leg - PSYCH Hx Psych Problems: Yes Hx Depression: Yes Comment:: learning disabilities - HEMATOLOGY/ONCOLOGY Hx Hematology/Oncology Disorders: Yes Hx Blood Transfusions: Yes (related to bleeding from injury due to a fall) Hx Blood Transfusion Reaction: No Family Medical History Hx Cancer: Brother/Sister Hx Depression: Brother/Sister Hx Diabetes: Brother/Sister, Grandparents Hx HTN: Brother/Sister Hx Seizures: Children Physical Exam - General General Appearance: Alert, Oriented x3, Cooperative, No acute distress Limitations: No limitations - Head Head exam: Atraumatic, Normal inspection - Eye Eye exam: Normal appearance. negative: Conjunctival injection - ENT ENT exam: Normal exam, Mucous membranes moist Ear exam: Normal external inspection Nasal Exam: Normal inspection Mouth exam: Normal external inspection - Neck Neck exam: Normal inspection - Respiratory Respiratory exam: Normal lung sounds bilaterally. negative: Respiratory distress - Cardiovascular Cardiovascular Exam: Regular rate, Normal rhythm, Normal heart sounds - GI/Abdominal GI/Abdominal exam: Soft, Normal bowel sounds, Tenderness (tender lower mid line in the suprapubic area, otherwise soft and not tender). negative: Distended, Guarding, Rebound, Rigid - Rectal Rectal exam: Deferred - exam: Deferred - Back Back exam: Reports: Full ROM. Denies: CVA tenderness (R), CVA tenderness (L), Tenderness - Neurological Neurological exam: Alert, Oriented X3 - Psychiatric Psychiatric exam: Normal affect, Normal mood. negative: Agitated, Anxious - Skin Skin exam: Dry, Intact, Normal color, Warm Course - Reevaluation(s) Reevaluation #1: Given the pain has increased since the first two ED visits I recommend CT of the Abdomen and Pelvis. 06/28/19 03:57 06/28/19 04:47 The patient is doing well after the pain medication Bladder scanner was performed No retention CT scan is pending at this time 06/28/19 05:[address] scan was reviewed Bladder wall thickening with associated inflammatory changes consistent with infection. No diverticulitis. The pain is controlled. No fever. She will be discharged with some pain medication. She has had one dose of Macrobid so far. Medical Decision Making - Lab Data Result diagrams: 06/28/19 03:50 Disposition Disposition: Discharge Clinical Impression: Urinary tract infection, Abdominal pain Disposition: Home, Self-Care Condition: (2) Stable Instructions: Urinary Tract Infection in Women (ED), Abdominal Pain (ED) Additional Instructions: Review this ER visit and the tests performed with your family doctor Call your doctor for the next available follow up appointment Return to the ER for a recheck if worse, any new concerns or questions Take the prescriptions provided as directed Prescriptions: Hydrocodone/Acetaminophen [[place] 5mg/325mg] 1 tab PO Q6H PRN #10 tab PRN Reason: Pain - General Ondansetron [Zofran Odt] 4 mg PO Q8H #15 tab.rapdis Forms: Patient Portal Access Time of Disposition: 05:19 Quality - Quality Measures Quality Measures: N/A - Blood Pressure Screening Does Patient Have Any of the Following: Active Dx of HTN Blood Pressure Classification: Hypertensive Reading Systolic Measurement: 143 Diastolic Measurement: 90 Screening for High Blood Pressure: Patient Exclusion, Hx of HTN [G9744]
[2019-06-28] MEDS ORDERED: ONDANSETRON HCL IV 4 MG/2 ML VIAL IVP ONE (03:59)
--- NOTE | 2019-06-28 05:11 | CT SCAN REPORT ---
EXAMINATION: CT Abdomen and Pelvis with IV Contrast EXAM DATE: 06/28/2019 4:48 AM TECHNIQUE: CT imaging of the abdomen and pelvis was performed with intravenous contrast. Coronal and sagittal images were reconstructed. IV Contrast: The amount and type of contrast are recorded in the medical record. INDICATION: low abdominal pain COMPARISON: 04/11/2019 ENCOUNTER: Not applicable CT ABDOMEN AND PELVIS FINDINGS: Lung Bases: Included extent of the lung bases are clear. Hepatobiliary: There is mild diffuse decreased density of the liver compatible with fatty infiltratio n. Stable mild enlargement. The hepatic and portal veins appear patent. There is no biliary dilatati on and the gallbladder is unremarkable. Pancreas: The pancreas is normal. Spleen: The spleen is not enlarged. Adrenals: The adrenal glands are normal. Kidneys, Ureters, & Bladder: Both kidneys have a normal size and there is no hydronephrosis. Both ur eters have a normal caliber. Mild diffuse bladder wall thickening is noted with slight associated inf lammatory changes. Gastrointestinal: There is a small hiatal hernia. The stomach and small bowel are normal with no obst ruction or inflammation. The appendix is normal. There is diverticular disease involving primarily t he left colon including the sigmoid segment with no associated inflammation. The large bowel is othe rwise unremarkable. Reproductive Organs: Status post hysterectomy. There is a 2.9 x 1.8 cm right adnexal cyst. There is a 1.8 x 1.6 cm cyst in the left adnexa. Stable cystic region seen in the region of the left vaginal wa ll with associated calcification Lymphatic System: There is no adenopathy within the abdomen or pelvis. Vasculature: Abdominal aorta has a normal caliber with moderate atherosclerotic plaque. Peritoneum: No free fluid, free air, or inflammation Abdominal Wall & Musculoskeletal: There is lower lumbar degenerative disc disease. IMPRESSION: 1. Bladder wall thickening with associated inflammatory changes may be related to infection. Please correlate clinically. 2. Left-sided colonic diverticula without CT evidence of acute diverticulitis. 3. Additional findings, as above. Dictated by: Blaire Almonte MD on 06/28/2019 4:49 AM. .
[2019-06-28] MEDS ORDERED: HYDROCODONE/APAP 5/325MG TABLET PO ONE (05:19)
== END 2019-06-28 05:30 | disposition home or self-care (01) ==
LOC: ER 03:49
DX: N39.0 Urinary tract infection, site not specified (principal); R10.9 Unspecified abdominal pain; I10 Essential (primary) hypertension; Z87.891 Personal history of nicotine dependence
CPT/HCPCS: 74177; 96374; 96375; 99284; J1885; J2405